=== PATIENT | male | born 1970 ===

== ENCOUNTER 2016-11-04 16:42 | Emergency (ER) | payer OTHER ==
[2016-11-04 16:42] VITALS: BMI 41.1
[2016-11-04 16:56] VITALS: BP 120/72; PULSE 105; TEMP 98.8; O2SAT 95
[2016-11-04] MEDS ORDERED: Albuterol-Ipratrop 3 mg / 0.5 (3 ml) UD INH STA ×2 (17:11→17:12)
[2016-11-04] MEDS ORDERED: Albuterol-Ipratrop 3 mg / 0.5 (3 ml) UD ONE (17:23)
[2016-11-04 17:41] VITALS: RESP 18
[2016-11-04 17:42] LABS: BASO % 0.4 % (0.0-2.0); EOS # 0.1 K/uL (0.0-0.7); EOS % 1.1 % (0.0-4.0); HEMATOCRIT 39.9 % (35.0-51.0); LYMPH # 1.6 K/uL (1.0-4.3); LYMPH % 23.5 % (20.0-40.0); MEAN CELL VOLUME 88.6 fl (80.0-94.0); MEAN CORPUSCULAR HEMOGLOBIN 29.2 pg (27.0-31.0); MEAN PLATELET VOLUME 7.9 fl (7.2-11.7); MONO # 0.6 K/uL (0.0-0.8); MONO % 8.7 % (0.0-10.0); NEUT # 4.5 K/uL (1.8-7.0); NEUT % 66.3 % (50.0-75.0); NRBC % 0.1 % (0.0-0.0); RED CELL DISTRIBUTION WIDTH 13.6 % (11.5-14.5); WHITE BLOOD COUNT 6.8 K/uL (4.8-10.8)
[2016-11-04 17:55] LABS: ALB/GLOB RATIO 1.1 (1.0-2.1); ALKALINE PHOSPHATASE 78 U/L (38-126); ALT/SGPT 41 U/L (21-72); AST/SGOT 27 U/L (17-59); BILIRUBIN,TOTAL 0.3 mg/dl (0.2-1.3); BLOOD UREA NITROGEN 21 mg/dl (9-20); CALCIUM 8.9 mg/dL (8.4-10.2); CARBON DIOXIDE 25 mmol/L (22-30); CHLORIDE 107 mmol/L (98-107); GFR AFRICAN-AMERICAN > 60; GLUCOSE,RANDOM 123 mg/dL (75-110); POTASSIUM 3.9 MMOL/L (3.6-5.0); SODIUM 144 mmol/l (132-148); TOTAL PROTEIN 7.5 G/DL (6.3-8.2)
--- NOTE | 2016-11-04 18:35 | ED PDOC ---
HPI: CCC, URI, Sore Throat Time Seen by Provider: 11/04/16 17:01 Chief Complaint (Nursing): Shortness Of Breath Chief Complaint (Provider): Cough, cold congestion History Per: Patient History/Exam Limitations: no limitations Have you had recent travel within the past 21 days to any of the following countries: [place], [place], [place] or [place]?: No Onset/Duration Of Symptoms: Days Current Symptoms Are (Timing): Still Present Location Of Pain: Throat Sick Contacts (Context): Friend(s) Associated Symptoms: Cough, Sputum. denies: Fever Additional History Per: Patient Additional Complaint(s): The pt is a 46 yo male, HIV+ with CD4+ counts over 700 and an undetectable viral load, presents to the ED for evaluation of cough, cold and congestion for the past 3 weeks. Pt reports people in the building where he lives had similar symptoms but are better now - the pt is concerned because his symptoms are still present. He reprots visiting his PMD who gave him Rx Bactrim which the pt had for a two week course. He reports no improvement from the antibiotics. Pt denies taking any steroids for his symptoms. He denies any fever but reports a productive cough with brown sputum. Currently, the pt offers no additional medical complaints. PMD: Dr. Craig Past Medical History Reviewed: Historical Data, Nursing Documentation, Vital Signs Vital Signs: Last Vital Signs Temp 98.8 F 11/04/16 16:53 Pulse 105 H 11/04/16 16:53 Resp 18 11/04/16 17:39 BP 120/72 11/04/16 16:53 Pulse Ox 95 11/04/16 22:04 - Medical History PMH: Anxiety, Asthma, Back Problems, Depression, HIV (CD4 697, viral load undetectable), HTN, Hypercholesterolemia, Hyperthyroidism, Hypothyroidism, Malignancy (BURKITT'S LYMPHOMA) Denies: Diabetes, Hepatitis, Chronic Kidney Disease, Seizures, Sexually Transmitted Disease - Family History Family History: States: Unknown Family Hx, Hypertension - Immunization History Hx Tetanus Toxoid Vaccination: No Hx Influenza Vaccination: Yes Hx Pneumococcal Vaccination: Yes - Home Medications Home Medications: Ambulatory Orders Medication Instructions Recorded Gabapentin [Neurontin] 600 mg PO QID 03/13/15 Multivit, Iron, Min #5, FA 1 tab PO DAILY 04/04/15 [Strovite Forte] Ketotifen Fumarate [Zaditor] 1 drop BOTHEYES DAILY PRN 04/07/15 Montelukast [Singulair] 10 mg PO DAILY 04/07/15 amLODIPine [Norvasc] 10 mg PO DAILY 04/07/15 PARoxetine [Paxil] 20 mg PO DAILY #30 tab 04/15/15 Prazosin HCl [Minipress] 1 mg PO HS #30 cap 04/15/15 hydrOXYzine Pamoate [Vistaril] 50 mg PO BID PRN #60 cap 04/15/15 Albuterol HFA [Ventolin HFA 90 2 puff IH [id number] PRN #1 inhaler 10/01/15 mcg/actuation (8 g)] Atorvastatin [Lipitor] 1 tab PO DAILY 10/01/15 Imipramine [Tofranil] 1 tab PO DAILY 10/01/15 Oxybutynin [Ditropan Tab] 1 tab PO DAILY 10/01/15 Aspirin [Ecotrin] 81 mg PO DAILY 11/24/15 Naproxen 500 mg PO BID PRN #20 tab 11/24/15 Promethazine HCl/Codeine 5 ml PO Q12 PRN #100 ml 11/24/15 [Promethazine HCl-Codeine Phosphate 10 mg/5 ml] Albuterol 0.5% [Albuterol 0.5% 3 ml IH Q4H PRN #50 neb 03/09/16 Inhal Sandra (2.5 mg/0.5 ml) UD] Azithromycin [Zithromax] 250 mg PO DAILY #6 dose 03/09/16 Prednisone 50 mg PO DAILY #4 tablet 03/09/16 Promethazine/Dextromethorphan 10 ml PO Q6 PRN #1 bottle 03/09/16 [Promethazine-Dm Syrup] Polymyxin/Trimethoprim Sulfate 1 drop .ROUTE Q3 #1 bottle 07/16/16 [Polytrim Ophth Soln] Albuterol HFA [Ventolin HFA 90 2 puff IH Q4 PRN #1 unit 08/14/16 mcg/actuation (8 g)] Azithromycin [Zithromax] 250 mg PO DAILY #6 tab 08/14/16 Famotidine [Pepcid] 40 mg PO DAILY #10 tab 08/14/16 Ibuprofen [Motrin] 600 mg PO TID PRN #30 tab 08/14/16 Ondansetron [Zofran] 4 mg PO Q8H #8 tab 08/14/16 Promethazine HCl/Codeine 5 ml PO TID PRN #50 syrup 08/14/16 [Prometh-Codein 6.25-10 mg/5 ml] Triamcinolone Acetonide [Nasacort 1 spray NS DAILY #1 unit 08/14/16 Allergy 24Hr] guaiFENesin/Dextromethorphan 1 tab PO BID #6 tab 08/14/16 [guaiFENesin/DM 600-30 mg] Albuterol 0.083% [Albuterol 3 ml IH Q4 PRN #50 neb 09/07/16 Sulfate 3 Ml] Azithromycin [Zithromax] 250 mg PO DAILY #4 dose 09/07/16 Prednisone 50 mg PO DAILY #4 tablet 09/07/16 traMADol [Ultram] 50 mg PO TID PRN #15 tab 09/07/16 Dicyclomine [Bentyl] 20 mg PO TID PRN #30 tab 10/01/16 Ondansetron [Zofran] 4 mg PO Q8H PRN #30 tab 10/01/16 Benzonatate [Tessalon Perles] 100 mg PO BID #15 sgl 11/04/16 predniSONE [predniSONE Tab] 60 mg PO DAILY #9 tab 11/04/16 - Allergies Allergies/Adverse Reactions: Allergies Allergy/AdvReac Type Severity Reaction Status Date / Time No Known Allergies Allergy Verified 11/04/16 16:53 Review of Systems ROS Statement: Except As Marked, All Systems Reviewed And Found Negative Constitutional: Negative for: Fever Respiratory: Positive for: Cough, Sputum Physical Exam - Reviewed Nursing Documentation Reviewed: Yes Vital Signs Reviewed: Yes - Physical Exam Appears: Positive for: Well (pt is obese), Non-toxic, No Acute Distress Head Exam: Positive for: ATRAUMATIC, NORMAL INSPECTION, NORMOCEPHALIC Skin: Positive for: Normal Color Eye Exam: Positive for: Normal appearance Neck: Positive for: Normal, Supple Cardiovascular/Chest: Positive for: Regular Rate, Rhythm Respiratory: Positive for: Wheezing (right lung field). Negative for: Respiratory Distress Neurologic/Psych: Positive for: Alert, Oriented - Laboratory Results Result Diagrams: 11/04/16 17:28 11/04/16 17:28 - ECG O2 Sat by Pulse Oximetry: 95 Medical Decision Making Medical Decision Making: Time: 1729 Impression: URI vs. bronchitis, pneumonia Plan: -- CXR -- Duoneb -- Toradol -- Prednisone --Reassess 1928 Pt reports feeling much better, will follow up with his PMD. Stable for discharge home. Scribe Attestation: Documented by Lila Ochoa acting as a scribe for Remy Rodriguez MD. Provider Attestation: All medical record entries made by the Scribe were at my direction and personally dictated by me. I have reviewed the chart and agree that the record accurately reflects my personal performance of the history, physical exam, medical decision making, and the department course for this patient. I have also personally directed, reviewed, and agree with the discharge instructions and disposition. Disposition - Clinical Impression Clinical Impression: Upper respiratory infection, Asthma - Disposition Referrals: Robert Craig MD [Family Provider] - Disposition: Routine/Home Disposition Time: 22:00 Condition: IMPROVED Prescriptions: Benzonatate [Tessalon Perles] 100 mg PO BID #15 sgl predniSONE [predniSONE Tab] 60 mg PO DAILY #9 tab Instructions: Asthma (ED), Upper Respiratory Infection (ED)
--- NOTE | 2016-11-05 16:19 | RAD ---
HISTORY: hx of HIV, r/o PNA COMPARISON: 09/07/2016 TECHNIQUE: Chest PA and lateral FINDINGS: LUNGS: The lungs are well inflated and clear. PLEURA: No significant pleural effusion identified. No pneumothorax apparent. CARDIOVASCULAR: Normal. OSSEOUS STRUCTURES: No significant abnormalities. VISUALIZED UPPER ABDOMEN: Normal. OTHER FINDINGS: None. IMPRESSION: No active pulmonary disease.
== END 2016-11-04 19:45 | disposition home or self-care (01) ==
LOC: H.ER 16:42
DX: J45.909 Unspecified asthma, uncomplicated (principal); J06.9 Acute upper respiratory infection, unspecified; B20 Human immunodeficiency virus [HIV] disease; E03.9 Hypothyroidism, unspecified; E78.00 Pure hypercholesterolemia, unspecified; I10 Essential (primary) hypertension; Z79.82 Long term (current) use of aspirin

== ENCOUNTER 2017-02-04 15:24 | Emergency (ER) | payer OTHER ==
[2017-02-04 15:24] VITALS: BMI 41.1
[2017-02-04] MEDS ORDERED: Sodium Chloride 0.9% 1,000 ML IV STA (15:52)
--- NOTE | 2017-02-04 16:13 | ED PDOC ---
HPI: General Adult Chief Complaint (Nursing): Abdominal Pain History Per: Patient Additional Complaint(s): Pt. states for the past 2 weeks he's had R sided flank pain radiating down to his R groin area. Pt. reports pain worsened over the past several days. Today he was seen by Dr. Craig who performed a urine test which showed blood in his urine. Denies fever, hematuria, dysuria, chest pain, trauma, incontinence, frequency, postprandial pain, testicular pain. Past Medical History Reviewed: Historical Data, Nursing Documentation, Vital Signs Vital Signs: Last Vital Signs Temp 98.4 F 02/04/17 19:00 Pulse 88 02/04/17 19:00 Resp 16 02/04/17 19:00 BP 115/60 02/04/17 19:00 Pulse Ox 96 02/04/17 19:00 - Medical History PMH: Anxiety, Asthma, Back Problems, Depression, HIV, HTN, Hypercholesterolemia , Hyperthyroidism, Hypothyroidism, Malignancy (BURKITT'S LYMPHOMA) Denies: Diabetes, Hepatitis, Chronic Kidney Disease, Seizures, Sexually Transmitted Disease - Family History Family History: States: Unknown Family Hx, Hypertension - Immunization History Hx Tetanus Toxoid Vaccination: No Hx Influenza Vaccination: Yes Hx Pneumococcal Vaccination: Yes - Home Medications Home Medications: Ambulatory Orders Medication Instructions Recorded Multivit,Iron,Min 5/Folic Acid 1 tab PO DAILY 04/04/15 [Strovite Forte Caplet] Montelukast [Singulair] 10 mg PO DAILY 04/07/15 amLODIPine [Norvasc] 10 mg PO DAILY 04/07/15 Prazosin HCl [Minipress] 1 mg PO HS #30 cap 04/15/15 hydrOXYzine Pamoate [Vistaril] 50 mg PO BID PRN #60 cap 04/15/15 Albuterol HFA [Ventolin HFA 90 2 puff IH [id number] PRN #1 inhaler 10/01/15 mcg/actuation (8 g)] Atorvastatin [Lipitor] 1 tab PO DAILY 10/01/15 Aspirin [Ecotrin] 81 mg PO DAILY 11/24/15 Albuterol 0.083% [Albuterol 0.083% 3 ml IH Q4 PRN #50 neb 09/07/16 Inhal Sandra (2.5 mg/3 ml) UD] Gabapentin [Neurontin] 600 mg PO Q4 11/26/16 Methimazole 10 mg PO TID 11/26/16 Efavirenz [Sustiva] 600 mg PO DAILY tab 11/30/16 Emtricitabine/Tenofovir Diso 1 tab PO DAILY tab 11/30/16 [Truvada 200 MG-300 MG] Enoxaparin [Lovenox] 40 mg SC DAILY syr 11/30/16 Fluticasone/Salmeterol 500/50 1 puff IH Q12 puff 11/30/16 [Advair Diskus 500/50] Mupirocin 2% Ointment [Bactroban 1 applic TOP BID tube 11/30/16 Ointment] Saccharomyces Boulardi [Florastor] 250 mg PO BID cap 11/30/16 Zolpidem [Ambien] 10 mg PO HS PRN #0 tab 11/30/16 Naproxen [Naprosyn] 500 mg PO BID PRN #30 tab 02/04/17 metFORMIN [glucOPHAGE] 500 mg PO BID #14 tab 02/04/17 - Allergies Allergies/Adverse Reactions: Allergies Allergy/AdvReac Type Severity Reaction Status Date / Time No Known Allergies Allergy Verified 02/04/17 15:26 Review of Systems ROS Statement: Except As Marked, All Systems Reviewed And Found Negative Physical Exam - Reviewed Nursing Documentation Reviewed: Yes Vital Signs Reviewed: Yes - Physical Exam Appears: Positive for: Well, Non-toxic, Uncomfortable Head Exam: Positive for: ATRAUMATIC, NORMAL INSPECTION, NORMOCEPHALIC Skin: Positive for: Normal Color, Warm, DRY Eye Exam: Positive for: EOMI, Normal appearance, PERRL ENT: Positive for: Normal ENT Inspection Neck: Positive for: Normal, Painless ROM Cardiovascular/Chest: Positive for: Regular Rate, Rhythm Respiratory: Positive for: CNT, Normal Breath Sounds Gastrointestinal/Abdominal: Positive for: Normal Exam, Bowel Sounds, Soft. Negative for: Tenderness Back: Positive for: Normal Inspection. Negative for: L CVA Tenderness, R CVA Tenderness Extremity: Positive for: Normal ROM Neurologic/Psych: Positive for: Alert, Oriented - Laboratory Results Result Diagrams: 02/04/17 16:33 02/04/17 16:33 - ECG O2 Sat by Pulse Oximetry: 97 - Progress ED Course And Treament: Labs ordered. IV NS bolus given. Toradol 15mg IV, morphine 4mg IV, zofran 4mg IV given. CT abd/pelvis w/o contrast ordered. RUQ US ordered. CT abd/pelvis w/o contrast: Hepatomegaly. Hepatic steatosis. RUQ US: IMPRESSION: Examination is markedly limited due to habitus. Hepatomegaly. Echogenic liver may be seen in setting of hepatic parenchymal disease or fatty infiltration. Pt. reports pain has improved. Reports no hx of DM but has been having polyuria and polydipsia. Metformin will be given. Disposition - Clinical Impression Clinical Impression: Renal colic, Hyperglycemia - Patient ED Disposition Is Patient to be Admitted: No - Disposition Disposition: Routine/Home Disposition Time: 19:11 Condition: IMPROVED Prescriptions: metFORMIN [glucOPHAGE] 500 mg PO BID #14 tab Naproxen [Naprosyn] 500 mg PO BID PRN #30 tab PRN Reason: Pain Instructions: Renal Colic (ED), Diabetes Mellitus Type 2 in Adults (ED) Print Language: MICRONESIAN
[2017-02-04 16:34] LABS: RBC URINE 1 /hpf (0-3); URINE BILIRUBIN NEGATIVE (NEGATIVE); URINE BLOOD MODERATE (NEGATIVE); URINE COLOR YELLOW (YELLOW); URINE GLUCOSE (UA) >=500 mg/dL (Normal); URINE KETONE NEGATIVE (NEGATIVE); URINE LEUKOCYTE ESTERASE NEG Leu/uL (Negative); URINE PROTEIN NEGATIVE (NEGATIVE); URINE UROBILINOGEN 0.2-1.0 mg/dL (0.2-1.0); WBC URINE < 1 /hpf (0-5)
[2017-02-04 16:46] LABS: BASO % 0.4 % (0.0-2.0); EOS # 0.1 K/uL (0.0-0.7); EOS % 1.4 % (0.0-4.0); HEMATOCRIT 42.5 % (35.0-51.0); LYMPH # 2.3 K/uL (1.0-4.3); LYMPH % 37.1 % (20.0-40.0); MEAN CELL VOLUME 87.2 fl (80.0-94.0); MEAN CORPUSCULAR HEMOGLOBIN 29.1 pg (27.0-31.0); MEAN CORPUSCULAR HGB CONC 33.4 g/dL (33.0-37.0); MEAN PLATELET VOLUME 7.8 fl (7.2-11.7); MONO # 0.8 K/uL (0.0-0.8); MONO % 12.4 % (0.0-10.0); NEUT % 48.7 % (50.0-75.0); NRBC % 0.1 % (0.0-0.0); RED CELL DISTRIBUTION WIDTH 13.4 % (11.5-14.5); WHITE BLOOD COUNT 6.1 K/uL (4.8-10.8)
[2017-02-04 16:53] LABS: ALB/GLOB RATIO 1.2 (1.0-2.1); ALKALINE PHOSPHATASE 93 U/L (38-126); ALT/SGPT 58 U/L (21-72); AST/SGOT 27 U/L (17-59); BILIRUBIN,TOTAL 0.2 mg/dl (0.2-1.3); BLOOD UREA NITROGEN 15 mg/dl (9-20); CALCIUM 9.2 mg/dL (8.4-10.2); CARBON DIOXIDE 23 mmol/L (22-30); CHLORIDE 108 mmol/L (98-107); GFR AFRICAN-AMERICAN > 60; GLUCOSE,RANDOM 160 mg/dL (75-110); LIPASE 81 U/L (23-300); POTASSIUM 3.7 MMOL/L (3.6-5.0); SODIUM 142 mmol/l (132-148); TOTAL PROTEIN 8.1 G/DL (6.3-8.2)
--- NOTE | 2017-02-04 17:25 | US ---
HISTORY: RUQ pain COMPARISON: CT abdomen and pelvis with contrast performed 09/30/16 TECHNIQUE: Sonographic evaluation of the right upper quadrant of the abdomen. FINDINGS: LIVER: Measures 20.0 cm in length. Echogenic liver may be seen in setting of hepatic parenchymal disease or fatty infiltration. No focal hepatic mass identified. Main portal vein is not adequately visualized. No intrahepatic bile duct dilatation. GALLBLADDER: No gallstones. No gallbladder wall thickening or pericholecystic edema. Negative sonographic Ruby's sign as assessed by the operations research group manager. COMMON BILE DUCT: Measures approximately 4 mm. PANCREAS: Not well-visualized. RIGHT KIDNEY: Measures 12.9 x 5.2 x 6.2 cm. No obstructing calculus or hydronephrosis identified. AORTA: Not well-visualized. IVC: Not well-visualized. OTHER FINDINGS: None . IMPRESSION: Examination is markedly limited due to habitus. Hepatomegaly. Echogenic liver may be seen in setting of hepatic parenchymal disease or fatty infiltration. The main portal vein is not adequately visualized.
--- NOTE | 2017-02-04 18:20 | CT ---
PROCEDURE: CT Abdomen and Pelvis without Oral or IV contrast. HISTORY: R flank pain COMPARISON: Limited abdominal ultrasound performed 02/04/17, CT abdomen and pelvis with contrast performed 09/30/16 TECHNIQUE: Contiguous axial images of the abdomen and pelvis. No oral or IV contrast administered. Coronal and Sagittal reformats generated and reviewed. Radiation dose: Total exam DLP = 1026.27 mGy-cm. This CT exam was performed using one or more of the following dose reduction techniques: Automated exposure control, adjustment of the mA and/or kV according to patient size, and/or use of iterative reconstruction technique. FINDINGS: There is limited evaluation of the solid organs without the administration of IV contrast. Examination limited by habitus. LOWER THORAX: No visible consolidation, pleural effusion, or pneumothorax. LIVER: Hypoattenuation of the liver compatible with hepatic steatosis. Hepatomegaly. GALLBLADDER AND BILE DUCTS: Unremarkable unenhanced appearance. PANCREAS: Unremarkable unenhanced appearance. SPLEEN: Unremarkable unenhanced appearance. ADRENALS: Unremarkable unenhanced appearance. KIDNEYS AND URETERS: No hydronephrosis or obstructing renal calculus. BLADDER: The urinary bladder appears unremarkable. REPRODUCTIVE: Unremarkable. APPENDIX: The appendix appears within normal limits of caliber. No secondary signs of acute appendicitis. BOWEL: The stomach is nondistended. Lack of oral contrast limits evaluation for bowel pathology. The bowel loops appear within normal limits of caliber without evidence of intestinal obstruction. PERITONEUM: No significant free fluid. No definite free air. LYMPH NODES: No bulky lymphadenopathy identified. VASCULATURE: No aortic aneurysm. BONES: Mild degenerative changes. OTHER FINDINGS: Small fat containing umbilical hernia. IMPRESSION: Hepatomegaly. Hepatic steatosis.
[2017-02-04 19:00] VITALS: BP 115/60; PULSE 88; RESP 16; TEMP 98.4
[2017-02-04 19:11] VITALS: O2SAT 97
== END 2017-02-04 19:35 | disposition home or self-care (01) ==
LOC: H.ER 15:24
DX: N23 Unspecified renal colic (principal); R73.9 Hyperglycemia, unspecified; E05.90 Thyrotoxicosis, unspecified without thyrotoxic crisis or storm; E78.00 Pure hypercholesterolemia, unspecified; F41.9 Anxiety disorder, unspecified; I10 Essential (primary) hypertension; Z79.82 Long term (current) use of aspirin; Z79.84 Long term (current) use of oral hypoglycemic drugs

== ENCOUNTER 2017-05-30 13:59 | Emergency (ER) | payer OTHER ==
[2017-05-30 13:59] VITALS: BMI 41.1
[2017-05-30 14:09] VITALS: TEMP 98
--- NOTE | 2017-05-30 14:20 | ED PDOC ---
HPI: SOB/CHF/COPD Time Seen by Provider: 05/30/17 14:19 Chief Complaint (Nursing): Shortness Of Breath Chief Complaint (Provider): SOB History Per: Patient Additional Complaint(s): 47-year-old HIV positive, asthmatic male presents to emergency department with shortness of breath and cough for 3 days. Patient was seen by primary care doctor's office and started on Bactrim and Medrol Dosepak 3 days ago but symptoms have worsened. He has had fever and chills at home. Patient's feels out of breath at rest and upon exertion. PMD: Dr. Craig Past Medical History Reviewed: Historical Data, Nursing Documentation, Vital Signs Vital Signs: Last Vital Signs Temp 98.0 F 05/30/17 14:03 Pulse 98 H 05/30/17 14:03 Resp 22 05/30/17 14:03 BP 122/66 05/30/17 14:03 Pulse Ox 94 L 05/30/17 14:44 - Medical History PMH: Anxiety, Asthma, Back Problems, Depression, HIV, HTN, Hypercholesterolemia , Hypothyroidism, Malignancy (BURKITT'S LYMPHOMA) - Family History Family History: States: Hypertension - Living Arrangements Living Arrangements: With Family - Social History Current smoker - smoking cessation education provided: No Alcohol: None Drugs: Denies - Home Medications Home Medications: Ambulatory Orders Medication Instructions Recorded Multivit,Iron,Min 5/Folic Acid 1 tab PO DAILY 04/04/15 [Strovite Forte Caplet] Montelukast [Singulair] 10 mg PO DAILY 04/07/15 amLODIPine [Norvasc] 10 mg PO DAILY 04/07/15 Prazosin HCl [Minipress] 1 mg PO HS #30 cap 04/15/15 hydrOXYzine Pamoate [Vistaril] 50 mg PO BID PRN #60 cap 04/15/15 Albuterol HFA [Ventolin HFA 90 2 puff IH [id number] PRN #1 inhaler 10/01/15 mcg/actuation (8 g)] Atorvastatin [Lipitor] 1 tab PO DAILY 10/01/15 Aspirin [Ecotrin] 81 mg PO DAILY 11/24/15 Albuterol 0.083% [Albuterol 0.083% 3 ml IH Q4 PRN #50 neb 09/07/16 Inhal Sandra (2.5 mg/3 ml) UD] Gabapentin [Neurontin] 600 mg PO Q4 11/26/16 Methimazole 10 mg PO TID 11/26/16 Efavirenz [Sustiva] 600 mg PO DAILY tab 11/30/16 Emtricitabine/Tenofovir Diso 1 tab PO DAILY tab 11/30/16 [Truvada 200 MG-300 MG] Enoxaparin [Lovenox] 40 mg SC DAILY syr 11/30/16 Fluticasone/Salmeterol 500/50 1 puff IH Q12 puff 11/30/16 [Advair Diskus 500/50] Mupirocin 2% Ointment [Bactroban 1 applic TOP BID tube 11/30/16 Ointment] Saccharomyces Boulardi [Florastor] 250 mg PO BID cap 11/30/16 Zolpidem [Ambien] 10 mg PO HS PRN #0 tab 11/30/16 Naproxen [Naprosyn] 500 mg PO BID PRN #30 tab 02/04/17 metFORMIN [glucOPHAGE] 500 mg PO BID #14 tab 02/04/17 - Allergies Allergies/Adverse Reactions: Allergies Allergy/AdvReac Type Severity Reaction Status Date / Time No Known Allergies Allergy Verified 02/04/17 15:26 Wells Criteria for PE - Wells Criteria for Pulmonary Embolism Clinical Signs and Symptoms of DVT: No P.E is #1 Diagnosis, or Equally Likely: No Heart Rate >100: No Immobilization at least 3 days;Surgery previous 4 weeks: No Previous, objectively diagnosed PE or DVT: No Hemoptysis: No Malignancy w/treatment within 6 months, or palliative: No Total Score: 0 Review of Systems ROS Statement: Except As Marked, All Systems Reviewed And Found Negative Constitutional: Positive for: Fever, Chills, Weakness Cardiovascular: Positive for: Chest Pain Respiratory: Positive for: Cough, Shortness of Breath, SOB with Exertion, Pleuritic Pain, Sputum (brown and green), Wheezing. Negative for: Hemoptysis Gastrointestinal: Negative for: Nausea, Vomiting, Abdominal Pain Neurological: Negative for: Headache, Dizziness Physical Exam - Reviewed Nursing Documentation Reviewed: Yes Vital Signs Reviewed: Yes - Physical Exam Appears: Positive for: Well, Non-toxic, No Acute Distress Skin: Negative for: Rash Eye Exam: Positive for: Normal appearance Cardiovascular/Chest: Positive for: Regular Rate, Rhythm Respiratory: Positive for: Rhonchi, Wheezing, Respiratory Distress (mild) Gastrointestinal/Abdominal: Positive for: Other (obese non-tender abdomen) Extremity: Positive for: Normal ROM Neurologic/Psych: Positive for: Alert, Oriented - ECG O2 Sat by Pulse Oximetry: 94 Pulse Ox Interpretation: Normal Medical Decision Making Medical Decision Makin47 year old with SOB Plan: EKG CXR CBC CMP Trop IV solumedrol Duoneb x 3 Disposition - Clinical Impression Clinical Impression: Shortness of breath - Patient ED Disposition Is Patient to be Admitted: Transfer of Care - Disposition Disposition: Transfer of Care Disposition Time: 15:09 Condition: FAIR Forms: [employer] (Lithuanian) Patient Signed Over To: Stacie Churchill Handoff Comments: Case was signed out to Dr. Churchill pending diagnostic testing results and final disposition
[2017-05-30] MEDS ORDERED: Albuterol-Ipratrop 3 mg / 0.5 (3 ml) UD INH STA (14:45)
[2017-05-30] MEDS ORDERED: Albuterol-Ipratrop 3 mg / 0.5 (3 ml) UD ONE (15:44)
[2017-05-30 15:56] LABS: BASO % 0.3 % (0.0-2.0); EOS # 0.2 K/uL (0.0-0.7); EOS % 2.1 % (0.0-4.0); HEMATOCRIT 42.8 % (35.0-51.0); LYMPH # 1.6 K/uL (1.0-4.3); LYMPH % 21.3 % (20.0-40.0); MEAN CELL VOLUME 87.4 fl (80.0-94.0); MEAN CORPUSCULAR HEMOGLOBIN 28.8 pg (27.0-31.0); MEAN PLATELET VOLUME 7.6 fl (7.2-11.7); MONO # 0.9 K/uL (0.0-0.8); MONO % 11.9 % (0.0-10.0); NEUT # 4.9 K/uL (1.8-7.0); NEUT % 64.4 % (50.0-75.0); NRBC % 0.1 % (0.0-0.0); RED CELL DISTRIBUTION WIDTH 13.6 % (11.5-14.5); WHITE BLOOD COUNT 7.5 K/uL (4.8-10.8)
[2017-05-30 16:05] LABS: ALB/GLOB RATIO 1.2 (1.0-2.1); ALKALINE PHOSPHATASE 88 U/L (38-126); ALT/SGPT 48 U/L (21-72); AST/SGOT 29 U/L (17-59); BILIRUBIN,TOTAL 0.2 mg/dl (0.2-1.3); BLOOD UREA NITROGEN 21 mg/dl (9-20); CALCIUM 8.8 mg/dL (8.4-10.2); CARBON DIOXIDE 26 mmol/L (22-30); CHLORIDE 107 mmol/L (98-107); GFR AFRICAN-AMERICAN > 60; GLUCOSE,RANDOM 100 mg/dL (75-110); POTASSIUM 3.9 MMOL/L (3.6-5.0); SODIUM 142 mmol/l (132-148); TOTAL PROTEIN 7.4 G/DL (6.3-8.2)
--- NOTE | 2017-05-30 16:05 | RAD ---
HISTORY: SOB COMPARISON: 11/25/2016 FINDINGS: LUNGS: No active pulmonary disease. PLEURA: No significant pleural effusion identified, no pneumothorax apparent. CARDIOVASCULAR: Normal. OSSEOUS STRUCTURES: No significant abnormalities. VISUALIZED UPPER ABDOMEN: Normal. OTHER FINDINGS: None. IMPRESSION: No active disease.
--- NOTE | 2017-05-30 16:35 | ED PDOC ---
- Laboratory Results Result Diagrams: 05/30/17 15:40 05/30/17 15:40 - ECG O2 Sat by Pulse Oximetry: 94 - Progress Re-evaluation Time: 17:40 Condition: Improved (PF 500, wheezing resolved.) - Physician Consult Information Physician Contacted: Robert Craig Outcome Of Conversation: Agrees with discharge home. Disposition - Clinical Impression Clinical Impression: Asthma exacerbation - POA Present On Arrival: None - Disposition Referrals: Robert Craig MD [Staff Provider] - Disposition: Routine/Home Disposition Time: 17:53 Condition: IMPROVED Additional Instructions: CONTINUE CURRENT MEDICATIONS. Prescriptions: Albuterol HFA [Ventolin HFA 90 mcg/actuation (8 g)] 2 puff IH [id number] PRN #1 bottle PRN Reason: Shortness Of Breath Albuterol 0.083% [Albuterol 0.083% Inhal Sandra (2.5 mg/3 ml) UD] 3 ml IH Q6H PRN # 30 neb PRN Reason: Shortness Of Breath Instructions: Asthma (ED) Forms: [employer] (Czech) Addendum Addendum: 05/30/17 15:00 Pt signed out by Mariam Jarvis.
[2017-05-30 18:12] VITALS: BP 120/70; PULSE 79; RESP 19; O2SAT 98
--- NOTE | 2017-05-31 08:19 | CARD ---
APPROVED REPORT EKG Measurement Heart [id number] <Conclusion> Normal sinus rhythm Normal ECG
== END 2017-05-30 18:09 | disposition home or self-care (01) ==
LOC: H.ER 13:59
DX: J45.901 Unspecified asthma with (acute) exacerbation (principal); E78.00 Pure hypercholesterolemia, unspecified; F32.9 Major depressive disorder, single episode, unspecified; F41.9 Anxiety disorder, unspecified; I10 Essential (primary) hypertension; J44.9 Chronic obstructive pulmonary disease, unspecified; Z21 Asymptomatic human immunodeficiency virus [HIV] infection status; Z79.82 Long term (current) use of aspirin; Z79.84 Long term (current) use of oral hypoglycemic drugs
CPT/HCPCS: 71010; 80053; 83605; 84484; 85025; 87040; 93005; 94640; 96374; 99283; J1885; J2930

== ENCOUNTER 2017-05-31 18:41 | Emergency (ER) | payer OTHER ==
[2017-05-31 18:41] VITALS: BMI 41.1
[2017-05-31 18:46] VITALS: TEMP 98; O2SAT 94
[2017-05-31] MEDS ORDERED: Albuterol-Ipratrop 3 mg / 0.5 (3 ml) UD INH STA (19:17)
--- NOTE | 2017-05-31 19:35 | ED PDOC ---
HPI: General Adult Time Seen by Provider: 05/31/17 19:00 Chief Complaint (Nursing): Shortness Of Breath History Per: Patient Additional Complaint(s): Pt. states since the weekend he's had cough, congestion, bodyaches, and fever ( tmax 101). Reports that he was seen by his PMD, Dr. Craig, on Saturday and was prescribed steroids and Bactrim. States symptoms did not improve so he came to ED yesterday and had blood work and was subsequently discharged. Symptoms have been persistent. Pt. states this morning while walking to the bathroom he felt weak and he fell down. Pt. states he lost consciousness for a "few seconds" then he was able to get up and walk around again. Reports since the symptoms began he's had b/l flank pain along with cough productive of green/brown sputum. Denies hemoptysis, hx of DVT/PE, headache, head injury, leg pain, abdominal pain, numbness, tingling, weakness. Past Medical History Reviewed: Historical Data, Nursing Documentation, Vital Signs Vital Signs: Last Vital Signs Temp 98 F 05/31/17 18:43 Pulse 85 05/31/17 20:02 Resp 18 05/31/17 18:43 BP 167/86 H 05/31/17 18:43 Pulse Ox 94 L 05/31/17 20:02 - Medical History PMH: Anxiety, Asthma, Back Problems, Depression, HIV, HTN, Hypercholesterolemia , Hyperthyroidism, Hypothyroidism, Malignancy (BURKITT'S LYMPHOMA) Denies: Diabetes, Hepatitis, Chronic Kidney Disease, Seizures, Sexually Transmitted Disease - Family History Family History: States: Hypertension - Immunization History Hx Tetanus Toxoid Vaccination: No Hx Influenza Vaccination: Yes Hx Pneumococcal Vaccination: Yes - Home Medications Home Medications: Ambulatory Orders Medication Instructions Recorded Multivit,Iron,Min 5/Folic Acid 1 tab PO DAILY 04/04/15 [Strovite Forte Caplet] Montelukast [Singulair] 10 mg PO DAILY 04/07/15 amLODIPine [Norvasc] 10 mg PO DAILY 04/07/15 Prazosin HCl [Minipress] 1 mg PO HS #30 cap 04/15/15 hydrOXYzine Pamoate [Vistaril] 50 mg PO BID PRN #60 cap 04/15/15 Albuterol HFA [Ventolin HFA 90 2 puff IH [id number] PRN #1 inhaler 10/01/15 mcg/actuation (8 g)] Atorvastatin [Lipitor] 1 tab PO DAILY 10/01/15 Aspirin [Ecotrin] 81 mg PO DAILY 11/24/15 Albuterol 0.083% [Albuterol 0.083% 3 ml IH Q4 PRN #50 neb 09/07/16 Inhal Sandra (2.5 mg/3 ml) UD] Gabapentin [Neurontin] 600 mg PO Q4 11/26/16 Methimazole 10 mg PO TID 11/26/16 Efavirenz [Sustiva] 600 mg PO DAILY tab 11/30/16 Emtricitabine/Tenofovir Diso 1 tab PO DAILY tab 11/30/16 [Truvada 200 MG-300 MG] Enoxaparin [Lovenox] 40 mg SC DAILY syr 11/30/16 Fluticasone/Salmeterol 500/50 1 puff IH Q12 puff 11/30/16 [Advair Diskus 500/50] Mupirocin 2% Ointment [Bactroban 1 applic TOP BID tube 11/30/16 Ointment] Saccharomyces Boulardi [Florastor] 250 mg PO BID cap 11/30/16 Zolpidem [Ambien] 10 mg PO HS PRN #0 tab 11/30/16 Naproxen [Naprosyn] 500 mg PO BID PRN #30 tab 02/04/17 metFORMIN [glucOPHAGE] 500 mg PO BID #14 tab 02/04/17 Albuterol 0.083% [Albuterol 0.083% 3 ml IH Q6H PRN #30 neb 05/30/17 Inhal Sandra (2.5 mg/3 ml) UD] Albuterol HFA [Ventolin HFA 90 2 puff IH [id number] PRN #1 bottle 05/30/17 mcg/actuation (8 g)] - Allergies Allergies/Adverse Reactions: Allergies Allergy/AdvReac Type Severity Reaction Status Date / Time No Known Allergies Allergy Verified 02/04/17 15:26 Review of Systems ROS Statement: Except As Marked, All Systems Reviewed And Found Negative Respiratory: Positive for: Cough, Shortness of Breath, Sputum Physical Exam - Reviewed Nursing Documentation Reviewed: Yes Vital Signs Reviewed: Yes - Physical Exam Appears: Positive for: Well, Non-toxic, No Acute Distress Head Exam: Positive for: ATRAUMATIC, NORMAL INSPECTION, NORMOCEPHALIC Skin: Positive for: Normal Color, Warm. Negative for: Rash Eye Exam: Positive for: EOMI, Normal appearance, PERRL ENT: Positive for: Normal ENT Inspection Neck: Positive for: Normal, Painless ROM Cardiovascular/Chest: Positive for: Regular Rate, Rhythm Respiratory: Positive for: Wheezing (b/l expiratory wheezing). Negative for: Decreased Breath Sounds, Accessory Muscle Use, Crackles, Rales, Rhonchi, Respiratory Distress Gastrointestinal/Abdominal: Positive for: Normal Exam, Bowel Sounds, Soft. Negative for: Tenderness Back: Positive for: Normal Inspection. Negative for: L CVA Tenderness, R CVA Tenderness Extremity: Positive for: Normal ROM Neurologic/Psych: Positive for: Alert, Oriented. Negative for: Aphasia, Facial Droop - ECG ECG: Positive for: Interpreted By Me ECG Rhythm: Positive for: Sinus Rhythm. Negative for: ST/T Changes Rate: 85 O2 Sat by Pulse Oximetry: 94 Disposition - Clinical Impression Clinical Impression: Bronchospasm, acute - Patient ED Disposition Is Patient to be Admitted: Transfer of Care (Signed out to Panfilo PERKINS pending labs and final disposition.) - Disposition Disposition Time: 20:00 Condition: STABLE Forms: [employer] (Serbian)
[2017-05-31 19:37] VITALS: PULSE 85
[2017-05-31] MEDS ORDERED: Albuterol-Ipratrop 3 mg / 0.5 (3 ml) UD ONE ×2 (19:39→19:42)
[2017-05-31 20:04] LABS: BASO % 0.2 % (0.0-2.0); EOS % 0.4 % (0.0-4.0); HEMATOCRIT 40.4 % (35.0-51.0); LYMPH # 2.4 K/uL (1.0-4.3); LYMPH % 20.8 % (20.0-40.0); MEAN CELL VOLUME 85.9 fl (80.0-94.0); MEAN CORPUSCULAR HGB CONC 33.8 g/dL (33.0-37.0); MEAN PLATELET VOLUME 7.4 fl (7.2-11.7); MONO # 1.3 K/uL (0.0-0.8); MONO % 11.4 % (0.0-10.0); NEUT # 7.8 K/uL (1.8-7.0); NEUT % 67.2 % (50.0-75.0); NRBC % 0.1 % (0.0-0.0); RED CELL DISTRIBUTION WIDTH 14.2 % (11.5-14.5)
[2017-05-31 20:07] LABS: WHITE BLOOD COUNT 11.5 K/uL (4.8-10.8)
[2017-05-31 20:12] LABS: VENOUS BLOOD GAS BASE EXCESS 2.8 mmol/L (0.0-2.0); VENOUS BLOOD GAS PCO2 52 mmHg (40-60); VENOUS BLOOD PH 7.36 (7.32-7.43)
[2017-05-31 20:55] LABS: ALB/GLOB RATIO 1.2 (1.0-2.1); ALKALINE PHOSPHATASE 87 U/L (38-126); ALT/SGPT 48 U/L (21-72); AST/SGOT 29 U/L (17-59); BILIRUBIN,TOTAL 0.3 mg/dl (0.2-1.3); BLOOD UREA NITROGEN 20 mg/dl (9-20); CALCIUM 9.5 mg/dL (8.4-10.2); CARBON DIOXIDE 28 mmol/L (22-30); CHLORIDE 103 mmol/L (98-107); GFR AFRICAN-AMERICAN > 60; GLUCOSE,RANDOM 97 mg/dL (75-110); SODIUM 140 mmol/l (132-148); TOTAL PROTEIN 7.7 G/DL (6.3-8.2)
[2017-05-31 21:23] LABS: URINE BILIRUBIN NEGATIVE (NEGATIVE); URINE BLOOD SMALL (NEGATIVE); URINE COLOR YELLOW (YELLOW); URINE GLUCOSE (UA) NEG (Normal); URINE KETONE NEGATIVE (NEGATIVE); URINE LEUKOCYTE ESTERASE NEG Leu/uL (Negative); URINE PROTEIN NEGATIVE (NEGATIVE); URINE UROBILINOGEN 0.2-1.0 mg/dL (0.2-1.0)
[2017-05-31 21:25] LABS: RBC URINE 11 /hpf (0-3)
[2017-05-31 21:26] LABS: WBC URINE 2 /hpf (0-5)
--- NOTE | 2017-05-31 21:38 | ED PDOC ---
- Laboratory Results Result Diagrams: 05/31/17 19:59 05/31/17 21:00 - ECG O2 Sat by Pulse Oximetry: 94 Medical Decision Making Medical Decision Making: Case endorsed to marketing underwriter from GREGORIO Keys at 20:00 pending diagnostic review adn re-eval HPI reviewed: Pt. states since the weekend he's had cough, congestion, bodyaches, and fever ( tmax 101). Reports that he was seen by his PMD, Dr. Craig, on Saturday and was prescribed steroids and Bactrim. States symptoms did not improve so he came to ED yesterday and had blood work and was subsequently discharged. Symptoms have been persistent. Pt. states this morning while walking to the bathroom he felt weak and he fell down. Pt. states he lost consciousness for a "few seconds" ( never fell or blacked out) sat down and then he was able to get up and walk around again. Reports since the symptoms began he's had b/l flank pain along with cough productive of green/brown sputum. Denies hemoptysis, hx of DVT/PE, headache, head injury, leg pain, abdominal pain, numbness, tingling, weakness. Upon my eval, Pt in bed asking for sandwich, last duo neb treatment about to be initiated. Pt able to tolerated PO well.O2 sat 99% on RA On second re-eval, all labs and CXr results discussed with Pt who reports feeling well and wanting to go home. Pt reports he will be home tomorrow and can take his inhaler as advised. Pt admits he did not take his medications throughout the day today bc he was in school. Disposition - Clinical Impression Clinical Impression: Bronchospasm, acute - POA Present On Arrival: None - Disposition Disposition: Routine/Home Disposition Time: 22:05 Condition: STABLE Forms: [facility] (Burmese)
[2017-06-01 00:42] VITALS: BP 129/74; RESP 18
--- NOTE | 2017-06-01 12:22 | CARD ---
APPROVED REPORT EKG Measurement Heart [id number] LA [id number] <Conclusion> Normal sinus rhythm Normal ECG
--- NOTE | 2017-06-01 13:07 | RAD ---
HISTORY: SOB COMPARISON: No prior. FINDINGS: LUNGS: No active pulmonary disease. PLEURA: No significant pleural effusion identified, no pneumothorax apparent. CARDIOVASCULAR: Normal. OSSEOUS STRUCTURES: No significant abnormalities. VISUALIZED UPPER ABDOMEN: Normal. OTHER FINDINGS: None. IMPRESSION: No active disease.
== END 2017-05-31 21:57 | disposition home or self-care (01) ==
LOC: H.ER 18:41
DX: J98.01 Acute bronchospasm (principal); E05.90 Thyrotoxicosis, unspecified without thyrotoxic crisis or storm; E78.00 Pure hypercholesterolemia, unspecified; F32.9 Major depressive disorder, single episode, unspecified; F41.9 Anxiety disorder, unspecified; I10 Essential (primary) hypertension; J45.909 Unspecified asthma, uncomplicated; Z79.82 Long term (current) use of aspirin; Z79.84 Long term (current) use of oral hypoglycemic drugs
CPT/HCPCS: 71010; 80053; 81003; 82803; 84484; 85025; 85378; 87040; 93005; 94150; 94640; 96374; 99285; J1885

== ENCOUNTER 2017-08-13 12:25 | Emergency (ER) | payer MEDICAID, OTHER ==
[2017-08-13 12:25] VITALS: BMI 41.1
[2017-08-13 12:32] VITALS: RESP 16; TEMP 99; O2SAT 96
[2017-08-13] MEDS ORDERED: Naproxen 500 MG TAB PO STA (12:45)
--- NOTE | 2017-08-13 12:49 | ED PDOC ---
HPI: Head Injury Time Seen by Provider: 08/13/17 12:35 Chief Complaint (Nursing): Trauma History Per: Patient Injury Occurred (Timing): Days Ago: (2) Onset/Duration Of Symptoms: Days (2) Patient States: Fell Striking Head Severity: Moderate Pain Scale Rating Of: 3 Loss Of Consciousness: No Additional Complaint(s): Fell off bed while falling asleep striking head on coffee table. No LOC. Also injured left shoulder. Has been c/o headache, dizziness, nausea nd blurry vision. Also c/o left sided neck pain. Past Medical History Vital Signs: Last Vital Signs Temp 99 F 08/13/17 12:27 Pulse 116 H 08/13/17 12:27 Resp 16 08/13/17 12:27 BP 135/92 H 08/13/17 12:27 Pulse Ox 96 08/13/17 12:27 - Medical History PMH: Anxiety, Asthma, Back Problems, Depression, HIV, HTN, Hypercholesterolemia , Hyperthyroidism, Hypothyroidism, Malignancy (BURKITT'S LYMPHOMA) Denies: Diabetes, Hepatitis, Chronic Kidney Disease, Seizures, Sexually Transmitted Disease - Family History Family History: States: Unknown Family Hx, Hypertension - Immunization History Hx Tetanus Toxoid Vaccination: No Hx Influenza Vaccination: Yes Hx Pneumococcal Vaccination: Yes - Home Medications Home Medications: Ambulatory Orders Medication Instructions Recorded Multivit,Iron,Min 5/Folic Acid 1 tab PO DAILY 04/04/15 [Strovite Forte Caplet] Montelukast [Singulair] 10 mg PO DAILY 04/07/15 amLODIPine [Norvasc] 10 mg PO DAILY 04/07/15 Prazosin HCl [Minipress] 1 mg PO HS #30 cap 04/15/15 hydrOXYzine Pamoate [Vistaril] 50 mg PO BID PRN #60 cap 04/15/15 Atorvastatin [Lipitor] 1 tab PO DAILY 10/01/15 Aspirin [Ecotrin] 81 mg PO DAILY 11/24/15 Gabapentin [Neurontin] 600 mg PO Q4 11/26/16 Methimazole 10 mg PO TID 11/26/16 Efavirenz [Sustiva] 600 mg PO DAILY tab 11/30/16 Emtricitabine/Tenofovir Diso 1 tab PO DAILY tab 11/30/16 [Truvada 200 MG-300 MG] Enoxaparin [Lovenox] 40 mg SC DAILY syr 11/30/16 Fluticasone/Salmeterol 500/50 1 puff IH Q12 puff 11/30/16 [Advair Diskus 500/50] Mupirocin 2% Ointment [Bactroban 1 applic TOP BID tube 11/30/16 Ointment] Saccharomyces Boulardi [Florastor] 250 mg PO BID cap 11/30/16 Zolpidem [Ambien] 10 mg PO HS PRN #0 tab 11/30/16 Naproxen [Naprosyn] 500 mg PO BID PRN #30 tab 02/04/17 metFORMIN [glucOPHAGE] 500 mg PO BID #14 tab 02/04/17 Albuterol 0.083% [Albuterol 0.083% 3 ml IH Q6H PRN #30 neb 05/30/17 Inhal Sandra (2.5 mg/3 ml) UD] Albuterol HFA [Ventolin HFA 90 2 puff IH [id number] PRN #1 bottle 05/30/17 mcg/actuation (8 g)] Ibuprofen [Motrin] 600 mg PO Q6 #20 tab 05/31/17 Promethazine HCl/Codeine 5 ml PO HS #80 ml 05/31/17 [Prometh-Codein 6.25-10 mg/5 ml] Benzonatate [Tessalon Perles] 200 mg PO TID PRN #21 sgl 06/10/17 Loratadine [Claritin] 10 mg PO DAILY #10 tab 06/10/17 predniSONE [Prednisone] 20 mg PO BID #10 tab 06/10/17 Naproxen [Naprosyn] 500 mg PO Q12H #20 tab 08/13/17 traMADol [Ultram] 50 mg PO Q8 #10 tab 08/13/17 - Allergies Allergies/Adverse Reactions: Allergies Allergy/AdvReac Type Severity Reaction Status Date / Time No Known Allergies Allergy Verified 06/10/17 11:23 Review of Systems ROS Statement: Except As Marked, All Systems Reviewed And Found Negative Eyes: Positive for: Vision Change Gastrointestinal: Positive for: Nausea Musculoskeletal: Positive for: Neck Pain Neurological: Positive for: Headache Physical Exam - Reviewed Nursing Documentation Reviewed: Yes Vital Signs Reviewed: Yes - Physical Exam Appears: Positive for: Non-toxic, No Acute Distress Head Exam: Positive for: ATRAUMATIC, NORMAL INSPECTION, NORMOCEPHALIC Skin: Positive for: Normal Color, Warm, DRY Eye Exam: Positive for: EOMI, Normal appearance, PERRL ENT: Positive for: Normal ENT Inspection Neck: Positive for: Normal, Painless ROM Cardiovascular/Chest: Positive for: Regular Rate, Rhythm Respiratory: Positive for: CNT, Normal Breath Sounds Gastrointestinal/Abdominal: Positive for: Normal Exam, Bowel Sounds, Soft Back: Positive for: Normal Inspection Extremity: Positive for: Normal ROM, Other (Ecchymosis left deltoid) Neurologic/Psych: Positive for: Alert, Oriented - ECG O2 Sat by Pulse Oximetry: 96 Disposition - Clinical Impression Clinical Impression: Concussion - Patient ED Disposition Is Patient to be Admitted: No - Disposition Referrals: Robert Craig MD [Family Provider] - Jason Jenkins MD [Medical Doctor] - Disposition: Routine/Home Disposition Time: 15:37 Condition: FAIR Prescriptions: Naproxen [Naprosyn] 500 mg PO Q12H #20 tab traMADol [Ultram] 50 mg PO Q8 #10 tab Instructions: Concussion (ED) Forms: [employer] (Belarusian)
--- NOTE | 2017-08-13 13:28 | RAD ---
PROCEDURE: Radiographs of the Left Shoulder HISTORY: trauma COMPARISON: No prior. FINDINGS: BONES: Normal. No fracture. JOINTS: Normal. Glenohumeral and acromioclavicular joints preserved. No osteoarthritis. SOFT TISSUES: Normal. OTHER FINDINGS: None. IMPRESSION: Normal radiographs of the left shoulder.
[2017-08-13] MEDS ORDERED: Naproxen 500 MG TAB PO ONE (15:19)
--- NOTE | 2017-08-13 15:19 | CT ---
PROCEDURE: CT HEAD WITHOUT CONTRAST. HISTORY: r/o bleed COMPARISON: 11/25/2016 TECHNIQUE: Axial computed tomography images were obtained through the head/brain without intravenous contrast. Radiation dose: Total exam DLP = 975.49 mGy-cm. This CT exam was performed using one or more of the following dose reduction techniques: Automated exposure control, adjustment of the mA and/or kV according to patient size, and/or use of iterative reconstruction technique. FINDINGS: HEMORRHAGE: No intracranial hemorrhage. BRAIN: No mass effect or edema. No atrophy or chronic microvascular ischemic changes. VENTRICLES: Unremarkable. No hydrocephalus. CALVARIUM: Unremarkable. PARANASAL SINUSES: Unremarkable as visualized. No significant inflammatory changes. MASTOID AIR CELLS: Unremarkable as visualized. No inflammatory changes. OTHER FINDINGS: None. IMPRESSION: No intracranial hemorrhage. Unremarkable CT examination of the head.
--- NOTE | 2017-08-13 15:36 | CT ---
PROCEDURE: CT Cervical Spine without contrast HISTORY: <trauma> COMPARISON: None available. TECHNIQUE: Axial computed tomography images were obtained of the cervical spine without the use of intravenous contrast. Coronal and sagittal reformatted images were created and reviewed. Radiation dose: Total exam DLP = 655.72 mGy-cm. This CT exam was performed using one or more of the following dose reduction techniques: Automated exposure control, adjustment of the mA and/or kV according to patient size, and/or use of iterative reconstruction technique. FINDINGS: VERTEBRAE: Vertebral bodies maintained in height. Normal alignment is maintained. The atlantoaxial articulation and odontoid process are intact. There is extensive sclerosis throughout the cervical spine which raises suspicion of sclerotic metastasis. There is no lytic osseous lesion identified. Consider correlation with radionuclide bone scan. DISCS/SPINAL CANAL/NEURAL FORAMINA: No significant central canal or neural foraminal stenosis. Discs heights are grossly preserved. PARASPINAL SOFT TISSUES: Unremarkable. OTHER FINDINGS: None. IMPRESSION: No evidence of fracture/dislocation. Diffuse sclerosis of the cervical spine raising suspicion of sclerotic metastasis. Further evaluation is advised.
[2017-08-13 15:57] VITALS: BP 140/83; PULSE 95
== END 2017-08-13 15:57 | disposition home or self-care (01) ==
LOC: H.ER 12:25
DX: S06.0X0A Concussion without loss of consciousness, initial encounter (principal); I10 Essential (primary) hypertension; Z86.59 Personal history of other mental and behavioral disorders; J45.909 Unspecified asthma, uncomplicated; E03.9 Hypothyroidism, unspecified; E78.00 Pure hypercholesterolemia, unspecified; Z79.82 Long term (current) use of aspirin; Z79.84 Long term (current) use of oral hypoglycemic drugs; W06.XXXA Fall from bed, initial encounter

== ENCOUNTER 2018-02-26 15:11 | Emergency (ER) | payer MEDICAID, MEDICARE ==
[2018-02-26 15:11] VITALS: BMI 41.1
[2018-02-26 15:37] VITALS: RESP 16
[2018-02-26] MEDS ORDERED: Sodium Chloride 0.9% 1,000 ML IV STA (15:58)
--- NOTE | 2018-02-26 16:17 | ED PDOC ---
HPI: Abdomen Time Seen by Provider: 02/26/18 15:41 Chief Complaint (Nursing): Abdominal Pain Chief Complaint (Provider): right flank pain History Per: Patient History/Exam Limitations: no limitations Onset/Duration Of Symptoms: Days (x1 month), Gradual, Worse Since (x2 weeks) Current Symptoms Are (Timing): Still Present Associated Symptoms: Urinary Symptoms (dysuria). denies: Fever, Chills, Nausea , Vomiting, Constipation Exacerbating Factors: Movement (sudden movement of the upper body), Deep Breaths Additional Complaint(s): Kurt Panchal Jr is a 47 year old male, with a past medical history of HTN, HIV, gastric sleeve and kidney stones, who presents to the emergency department complaining of right flank pain gradual onset for about x1 month but worst in the last x2 weeks. Patient states pain radiates down his groin and testicular area. Pain is worst with deep breaths and sudden movements of the upper body. Patient reports for the last x2 days hes had cloudy urine but denies any blood. He also reports episodes of dysuria. He denies any nausea, vomit or constipation. Patient underwent a gastric sleeve x3 weeks ago since then he's had loose stools that he attributes to the change in his diet. He lost 24 lbs over the last x3 weeks. Patient also reports warmth, erythema and tenderness to his midline anterior abdominal surgical wound for the last day. He denies any fever, chills or other medical complaints. PMD: Robert Craig Past Medical History Reviewed: Historical Data, Nursing Documentation, Vital Signs Vital Signs: Last Vital Signs Temp 98.5 F 02/26/18 19:11 Pulse 67 02/26/18 19:11 Resp 16 02/26/18 19:11 BP 114/82 02/26/18 19:11 Pulse Ox 98 02/26/18 19:11 - Medical History PMH: Anxiety, Asthma, Back Problems, Depression, HIV, HTN, Hypercholesterolemia , Hyperthyroidism, Hypothyroidism, Malignancy (BURKITT'S LYMPHOMA) Denies: Diabetes, Hepatitis, Chronic Kidney Disease, Seizures, Sexually Transmitted Disease - Surgical History Other surgeries: Gastric sleeve - Family History Family History: States: Unknown Family Hx, Hypertension - Immunization History Hx Tetanus Toxoid Vaccination: No Hx Influenza Vaccination: Yes Hx Pneumococcal Vaccination: Yes - Home Medications Home Medications: Ambulatory Orders Medication Instructions Recorded Multivit,Iron,Min 5/Folic Acid 1 tab PO DAILY 04/04/15 [Strovite Forte Caplet] Montelukast [Singulair] 10 mg PO DAILY 04/07/15 amLODIPine [Norvasc] 10 mg PO DAILY 04/07/15 Prazosin HCl [Minipress] 1 mg PO HS #30 cap 04/15/15 hydrOXYzine Pamoate [Vistaril] 50 mg PO BID PRN #60 cap 04/15/15 Atorvastatin [Lipitor] 1 tab PO DAILY 10/01/15 Aspirin [Ecotrin] 81 mg PO DAILY 11/24/15 Gabapentin [Neurontin] 600 mg PO Q4 11/26/16 Methimazole 10 mg PO TID 11/26/16 Efavirenz [Sustiva] 600 mg PO DAILY tab 11/30/16 Emtricitabine/Tenofovir Diso 1 tab PO DAILY tab 11/30/16 [Truvada 200 MG-300 MG] Enoxaparin [Lovenox] 40 mg SC DAILY syr 11/30/16 Fluticasone/Salmeterol 500/50 1 puff IH Q12 puff 11/30/16 [Advair Diskus 500/50] Mupirocin 2% Ointment [Bactroban 1 applic TOP BID tube 11/30/16 Ointment] Saccharomyces Boulardi [Florastor] 250 mg PO BID cap 11/30/16 Zolpidem [Ambien] 10 mg PO HS PRN #0 tab 11/30/16 Naproxen [Naprosyn] 500 mg PO BID PRN #30 tab 02/04/17 metFORMIN [glucOPHAGE] 500 mg PO BID #14 tab 02/04/17 Albuterol 0.083% [Albuterol 0.083% 3 ml IH Q6H PRN #30 neb 05/30/17 Inhal Sandra (2.5 mg/3 ml) UD] Albuterol HFA [Ventolin HFA 90 2 puff IH [id number] PRN #1 bottle 05/30/17 mcg/actuation (8 g)] Ibuprofen [Motrin] 600 mg PO Q6 #20 tab 05/31/17 Promethazine HCl/Codeine 5 ml PO HS #80 ml 05/31/17 [Prometh-Codein 6.25-10 mg/5 ml] Benzonatate [Tessalon Perles] 200 mg PO TID PRN #21 sgl 06/10/17 Loratadine [Claritin] 10 mg PO DAILY #10 tab 06/10/17 predniSONE [Prednisone] 20 mg PO BID #10 tab 06/10/17 Naproxen [Naprosyn] 500 mg PO Q12H #20 tab 08/13/17 traMADol [Ultram] 50 mg PO Q8 #10 tab 08/13/17 Amoxicillin/Clavulanate [Augmentin 1 tab PO BID #14 tab 02/26/18 875 MG-125 MG] Cyclobenzaprine [Flexeril] 5 mg PO Q8 PRN #15 tab 02/26/18 Ibuprofen [Motrin Tab] 600 mg PO Q8 PRN #30 tab 02/26/18 - Allergies Allergies/Adverse Reactions: Allergies Allergy/AdvReac Type Severity Reaction Status Date / Time No Known Allergies Allergy Verified 02/26/18 15:34 Review of Systems ROS Statement: Except As Marked, All Systems Reviewed And Found Negative Constitutional: Negative for: Fever, Chills Gastrointestinal: Positive for: Other (flank pain). Negative for: Nausea, Vomiting, Constipation Genitourinary Male: Positive for: Dysuria, Scrotal Pain. Negative for: Hematuria Skin: Positive for: Other (surgical wound redness ) Physical Exam - Reviewed Nursing Documentation Reviewed: Yes Vital Signs Reviewed: Yes - Physical Exam Appears: Positive for: Uncomfortable, In Acute Distress (mild) Head Exam: Positive for: ATRAUMATIC, NORMAL INSPECTION, NORMOCEPHALIC Skin: Positive for: Normal Color, Warm, Dry Eye Exam: Positive for: Normal appearance, EOMI, PERRL Neck: Positive for: Painless ROM Cardiovascular/Chest: Positive for: Regular Rate, Rhythm. Negative for: Murmur Respiratory: Positive for: Normal Breath Sounds. Negative for: Respiratory Distress Gastrointestinal/Abdominal: Positive for: Soft, Tenderness (RUQ. Negative McBurney's point), Other (Midline surgical wound w/ yellowish pus, surrounding erythema, induration and warmth. ) Back: Positive for: R CVA Tenderness Extremity: Positive for: Normal ROM (upper and lower extremities). Negative for : Deformity, Swelling Lymphatic: Negative for: Adenopathy Neurologic/Psych: Positive for: Alert, Oriented. Negative for: Motor/Sensory Deficits - Laboratory Results Result Diagrams: 02/26/18 16:46 02/26/18 16:46 - ECG O2 Sat by Pulse Oximetry: 97 (RA) Pulse Ox Interpretation: Normal Medical Decision Making Medical Decision Making: Time: 15:41 Initial Impression: Flank pain and surgical wound infection. Differential includes but not limited to pyelonephritis, interabdominal abscess, renal colic , gallbladder disease Initial Plan: --Type and screen --Abd & pelvis w/o contrast [CT] --EKG --CMP --Lact Acid, Plasma --Lipase --Magnesium --Phosphorus --Troponin I --CBC w/ differential --PTT --PT --Flomax 0.4mg PO --Sodium Chloride 1,000 ml IV 999 mls/hr --Toradol 30 mg IVP --Tylenol 325 mg tab 975 mg PO --Urine culture --Urinalysis --Reevaluation Accession No. : [id number] Patient Name / ID : MICHELLE RAPP / [id number] Exam Date : 02/26/2018 16:41:21 ( Approved ) Study Comment : Sex / Age : M / 47Y Creator : Misael Montelongo MD Dictator : Misael Montelongo MD Assistant [employer] Coach : Fisheries Director : Misael Montelongo MD Approver2 : Report Date : 02/26/2018 17:05:13 My Comment : Date of service: 02/26/2018 PROCEDURE: CT Abdomen and Pelvis without intravenous contrast HISTORY: RIGHT FLANK PAIN COMPARISON: 02/04/2017 CT abdomen and pelvis 02/04/2017 abdominal ultrasound TECHNIQUE: Unenhanced study. Neither oral nor intravenous contrast administered. Radiation dose: Total exam DLP = 915.35 mGy-cm. This CT exam was performed using one or more of the following dose reduction techniques: Automated exposure control, adjustment of the mA and/or kV according to patient size, and/or use of iterative reconstruction technique. FINDINGS: LOWER THORAX: Unremarkable. LIVER: Hepatic steatosis. No focal masses. No intrahepatic bile duct dilatation or perihepatic ascites. GALLBLADDER AND BILE DUCTS: Unremarkable. PANCREAS: Unremarkable. No gross lesion or ductal dilatation. SPLEEN: Unremarkable. ADRENALS: Unremarkable. No mass. KIDNEYS AND URETERS: Unremarkable. No hydronephrosis. No solid mass. VASCULATURE: Unremarkable. No aortic aneurysm. BOWEL: Unremarkable. No obstruction. No gross mural thickening. Row incidental gastric bypass surgery related findings left upper quadrant APPENDIX: No abnormalities to suggest acute appendicitis. No right lower quadrant inflammatory processes identified. Solitary appendicolith identified. PERITONEUM: Unremarkable. No free fluid. No free air. LYMPH NODES: Unremarkable. No enlarged lymph nodes. BLADDER: Unremarkable. REPRODUCTIVE: Unremarkable. BONES: No acute fracture. OTHER FINDINGS: None. IMPRESSION: No significant or acute findings to account for/ related to the clinical presentation. Additional benign and/or incidental findings described above. DW pt findings and plan of care. DW covering doctor for Dr Blackmon (gastric sleeve surgeon). Pt to be given antibiotics and f/u office. ----- Scribe Attestation: Documented by Fermin Brown, acting as a scribe for Khushboo French MD. Provider Scribe Attestation: All medical record entries made by the Scribe were at my direction and personally dictated by me. I have reviewed the chart and agree that the record accurately reflects my personal performance of the history, physical exam, medical decision making, and the department course for this patient. I have also personally directed, reviewed, and agree with the discharge instructions and disposition. Disposition - Clinical Impression Clinical Impression: Flank pain, Wound infection after surgery Counseled Patient/Family Regarding: Studies Performed, Diagnosis, Need For Followup, Rx Given - Disposition Referrals: Lorri RAM,MD Aly [Non-Staff] - (FOLLOW UP TOMORROW FOR REEVALUATION) Robert Craig MD [Family Provider] - (FOLLOW UP TOMORROW FOR FURTHER EVALUATION) Disposition: Routine/Home Disposition Time: 18:30 Condition: STABLE Prescriptions: Amoxicillin/Clavulanate [Augmentin 875 MG-125 MG] 1 tab PO BID #14 tab Cyclobenzaprine [Flexeril] 5 mg PO Q8 PRN #15 tab PRN Reason: muscle spasm Ibuprofen [Motrin Tab] 600 mg PO Q8 PRN #30 tab PRN Reason: Pain, Moderate (4-7) Instructions: Flank Pain, Muscle Spasms (DC), Wound Infection Forms: [facility] (U[place]ayan)
[2018-02-26 16:54] LABS: BASO % 0.7 % (0.0-2.0); EOS # 0.1 K/uL (0.0-0.7); EOS % 1.4 % (0.0-4.0); HEMOGLOBIN 14.3 g/dL (12.0-18.0); LYMPH # 1.7 K/uL (1.0-4.3); LYMPH % 37.6 % (20.0-40.0); MEAN CELL VOLUME 86.4 fl (80.0-94.0); MEAN CORPUSCULAR HEMOGLOBIN 29.3 pg (27.0-31.0); MEAN CORPUSCULAR HGB CONC 33.9 g/dL (33.0-37.0); MEAN PLATELET VOLUME 7.7 fl (7.2-11.7); MONO # 0.4 K/uL (0.0-0.8); MONO % 9.8 % (0.0-10.0); NEUT # 2.3 K/uL (1.8-7.0); NEUT % 50.5 % (50.0-75.0); RBC 4.88 Mil/uL (4.40-5.90); RED CELL DISTRIBUTION WIDTH 13.7 % (11.5-14.5); WHITE BLOOD COUNT 4.6 K/uL (4.8-10.8)
--- NOTE | 2018-02-26 17:06 | CT ---
Date of service: 02/26/2018 PROCEDURE: CT Abdomen and Pelvis without intravenous contrast HISTORY: RIGHT FLANK PAIN COMPARISON: 02/04/2017 CT abdomen and pelvis 02/04/2017 abdominal ultrasound TECHNIQUE: Unenhanced study. Neither oral nor intravenous contrast administered. Radiation dose: Total exam DLP = 915.35 mGy-cm. This CT exam was performed using one or more of the following dose reduction techniques: Automated exposure control, adjustment of the mA and/or kV according to patient size, and/or use of iterative reconstruction technique. FINDINGS: LOWER THORAX: Unremarkable. LIVER: Hepatic steatosis. No focal masses. No intrahepatic bile duct dilatation or perihepatic ascites. GALLBLADDER AND BILE DUCTS: Unremarkable. PANCREAS: Unremarkable. No gross lesion or ductal dilatation. SPLEEN: Unremarkable. ADRENALS: Unremarkable. No mass. KIDNEYS AND URETERS: Unremarkable. No hydronephrosis. No solid mass. VASCULATURE: Unremarkable. No aortic aneurysm. BOWEL: Unremarkable. No obstruction. No gross mural thickening. Row incidental gastric bypass surgery related findings left upper quadrant APPENDIX: No abnormalities to suggest acute appendicitis. No right lower quadrant inflammatory processes identified. Solitary appendicolith identified. PERITONEUM: Unremarkable. No free fluid. No free air. LYMPH NODES: Unremarkable. No enlarged lymph nodes. BLADDER: Unremarkable. REPRODUCTIVE: Unremarkable. BONES: No acute fracture. OTHER FINDINGS: None. IMPRESSION: No significant or acute findings to account for/ related to the clinical presentation. Additional benign and/or incidental findings described above.
[2018-02-26 17:07] LABS: ALB/GLOB RATIO 1.2 (1.0-2.1); ALBUMIN 4.6 g/dL (3.5-5.0); ALT/SGPT 67 U/L (21-72); AST/SGOT 70 U/L (17-59); BLOOD UREA NITROGEN 10 mg/dl (9-20); GFR AFRICAN-AMERICAN > 60; GFR NON-AFRICAN AMERICAN > 60; LIPASE 132 U/L (23-300)
[2018-02-26 17:08] LABS: INR 1.2 (0.9-1.2); PARTIAL THROMBOPLASTIN TIME 36.4 Seconds (25.6-37.1); PROTHROMBIN TIME 12.8 Seconds (9.8-13.1)
[2018-02-26 18:14] LABS: SQUAMOUS EPITHIAL 1 /hpf (0-5); URINE BACTERIA RARE (<OCC); URINE BILIRUBIN NEGATIVE (NEGATIVE); URINE BLOOD NEGATIVE (NEGATIVE); URINE CLARITY SLIGHTY-CLOUDY (Clear); URINE COLOR YELLOW (YELLOW); URINE GLUCOSE (UA) NEG (Normal); URINE HYALINE CAST 0-2 /hpf (0-2); URINE LEUKOCYTE ESTERASE NEG Leu/uL (Negative); URINE PROTEIN 30 mg/dL (NEGATIVE)
[2018-02-26 19:12] VITALS: BP 114/82; PULSE 67; TEMP 98.5
[2018-02-26 22:45] VITALS: O2SAT 97
--- NOTE | 2018-02-27 15:07 | CARD ---
APPROVED REPORT Date of service: 02/26/2018 EKG Measurement Heart [id number] <Conclusion> Normal sinus rhythm Normal ECG
== END 2018-02-26 19:25 | disposition home or self-care (01) ==
LOC: H.ER 15:11
DX: R10.31 Right lower quadrant pain (principal); T81.4XXA Infection following a procedure, initial encounter; B95.62 Methicillin resistant Staphylococcus aureus infection as the cause of diseases classified elsewhere; I10 Essential (primary) hypertension; Z79.84 Long term (current) use of oral hypoglycemic drugs
CPT/HCPCS: 74176; 80053; 81003; 83605; 83690; 83735; 84100; 84484; 85025; 85610; 85730; 86850; 86900; 87040; 87070; 87086; 87181; 93005; 96361; 96374; 99283; J1885; J7030

== ENCOUNTER 2018-04-10 21:50 | Emergency (ER) | payer MEDICARE, MEDICAID ==
[2018-04-10 21:50] VITALS: BMI 41.1
[2018-04-10] MEDS ORDERED: Albuterol-Ipratrop 3 mg / 0.5 (3 ml) UD ONE (22:37)
[2018-04-10] MEDS ORDERED: Albuterol-Ipratrop 3 mg / 0.5 (3 ml) UD INH STA (22:39)
--- NOTE | 2018-04-10 22:53 | ED PDOC ---
HPI: SOB/CHF/COPD Time Seen by Provider: 04/10/18 22:22 Chief Complaint (Nursing): Shortness Of Breath History Per: Patient Additional Complaint(s): Pt. states since Saturday he's had a cough productive of green phlegm and progressively worsening chest pain and wheezing. Pt. states he's been using his albuterol pump and albuterol neb without any relief. Pt. states that symptoms are c/w his asthma. Denies TORREZ, weakness, fever, hemoptysis, abd pain, palpitations, previous intubations. Past Medical History Reviewed: Historical Data, Nursing Documentation, Vital Signs Vital Signs: Last Vital Signs Temp 98.7 F 04/11/18 00:55 Pulse 88 04/11/18 00:55 Resp 18 04/11/18 00:55 BP 120/72 04/11/18 00:55 Pulse Ox 99 04/11/18 00:55 - Medical History PMH: Anxiety, Asthma, Back Problems, Depression, HIV, HTN, Hypercholesterolemia , Hyperthyroidism, Hypothyroidism, Malignancy (BURKITT'S LYMPHOMA) Denies: CAD, Diabetes, Hepatitis, Pulmonary Embolism, Chronic Kidney Disease , Seizures, Sexually Transmitted Disease - Family History Family History: States: Hypertension - Immunization History Hx Tetanus Toxoid Vaccination: No Hx Influenza Vaccination: Yes Hx Pneumococcal Vaccination: Yes - Home Medications Home Medications: Ambulatory Orders Medication Instructions Recorded Multivit,Iron,Min 5/Folic Acid 1 tab PO DAILY 04/04/15 [Strovite Forte Caplet] Montelukast [Singulair] 10 mg PO DAILY 04/07/15 amLODIPine [Norvasc] 10 mg PO DAILY 04/07/15 Prazosin HCl [Minipress] 1 mg PO HS #30 cap 04/15/15 hydrOXYzine Pamoate [Vistaril] 50 mg PO BID PRN #60 cap 04/15/15 Atorvastatin [Lipitor] 1 tab PO DAILY 10/01/15 Aspirin [Ecotrin] 81 mg PO DAILY 11/24/15 Gabapentin [Neurontin] 600 mg PO Q4 11/26/16 Methimazole 10 mg PO TID 11/26/16 Efavirenz [Sustiva] 600 mg PO DAILY tab 11/30/16 Emtricitabine/Tenofovir Diso 1 tab PO DAILY tab 11/30/16 [Truvada 200 MG-300 MG] Enoxaparin [Lovenox] 40 mg SC DAILY syr 11/30/16 Fluticasone/Salmeterol 500/50 1 puff IH Q12 puff 11/30/16 [Advair Diskus 500/50] Mupirocin 2% Ointment [Bactroban 1 applic TOP BID tube 11/30/16 Ointment] Saccharomyces Boulardi [Florastor] 250 mg PO BID cap 11/30/16 Zolpidem [Ambien] 10 mg PO HS PRN #0 tab 11/30/16 Naproxen [Naprosyn] 500 mg PO BID PRN #30 tab 02/04/17 metFORMIN [glucOPHAGE] 500 mg PO BID #14 tab 02/04/17 Albuterol 0.083% [Albuterol 0.083% 3 ml IH Q6H PRN #30 neb 05/30/17 Inhal Sandra (2.5 mg/3 ml) UD] Albuterol HFA [Ventolin HFA 90 2 puff IH [id number] PRN #1 bottle 05/30/17 mcg/actuation (8 g)] Ibuprofen [Motrin] 600 mg PO Q6 #20 tab 05/31/17 Promethazine HCl/Codeine 5 ml PO HS #80 ml 05/31/17 [Prometh-Codein 6.25-10 mg/5 ml] Benzonatate [Tessalon Perles] 200 mg PO TID PRN #21 sgl 06/10/17 Loratadine [Claritin] 10 mg PO DAILY #10 tab 06/10/17 predniSONE [Prednisone] 20 mg PO BID #10 tab 06/10/17 Naproxen [Naprosyn] 500 mg PO Q12H #20 tab 08/13/17 traMADol [Ultram] 50 mg PO Q8 #10 tab 08/13/17 Amoxicillin/Clavulanate [Augmentin 1 tab PO BID #14 tab 02/26/18 875 MG-125 MG] Cyclobenzaprine [Flexeril] 5 mg PO Q8 PRN #15 tab 02/26/18 Ibuprofen [Motrin Tab] 600 mg PO Q8 PRN #30 tab 02/26/18 Azithromycin [Zithromax] 250 mg PO DAILY #6 tab 04/11/18 Benzonatate [Tessalon Perle] 100 mg PO Q8 PRN #14 capsule 04/11/18 Methylprednisolone [Medrol Dose 4 mg PO DAILY #21 mg 04/11/18 Pack (21 tabs)] - Allergies Allergies/Adverse Reactions: Allergies Allergy/AdvReac Type Severity Reaction Status Date / Time No Known Allergies Allergy Verified 02/26/18 15:34 Wells Criteria for PE - Wells Criteria for Pulmonary Embolism Clinical Signs and Symptoms of DVT: No P.E is #1 Diagnosis, or Equally Likely: No Heart Rate >100: No Immobilization at least 3 days;Surgery previous 4 weeks: No Previous, objectively diagnosed PE or DVT: No Hemoptysis: No Malignancy w/treatment within 6 months, or palliative: No Total Score: 0 - Laboratory Results Result Diagrams: 04/10/18 22:55 04/10/18 22:55 - ECG O2 Sat by Pulse Oximetry: 97 - Radiology X-Ray: Interpreted by Me (CXR) X-Ray Interpretation: No Acute Disease - Progress ED Course And Treament: On re-evaluation, pt. reports feeling much better and SOB has completely resolved. Disposition - Clinical Impression Clinical Impression: Asthmatic bronchitis - Patient ED Disposition Is Patient to be Admitted: No - Disposition Referrals: [email or web address] [Outside] Robert Craig MD [Family Provider] - Disposition: Routine/Home Disposition Time: 00:10 Condition: STABLE Additional Instructions: TAMELA MARTINEZ JR, thank you for letting us take care of you today. Your provider was Feroz Traylor MD and you were treated for DIFFICULTY BREATHING. The emergency medical care you received today was directed at your acute symptoms. If you were prescribed any medication, please fill it and take as directed. It may take several days for your symptoms to resolve. Return to the Emergency Department if your symptoms worsen, do not improve, or if you have any other problems. Please contact your doctor or call one of the physicians/clinics you have been referred to that are listed on the Patient Visit Information form that is included in your discharge packet. Bring any paperwork you were given at discharge with you along with any medications you are taking to your follow up visit. Our treatment cannot replace ongoing medical care by a primary care provider outside of the emergency department. Thank you for allowing the [facility] team to be part of your care today. If you had an X-Ray or CT scan: A Radiologist will review the ED reading if any change in treatment is needed we will contact you. If you had a blood, urine, or wound culture: It will take several days for the results, if any change in treatment is needed we will contact you. If you had an STI test: It will take 48 hours for the results. Please call after 1 week if you have not heard back. Prescriptions: Azithromycin [Zithromax] 250 mg PO DAILY #6 tab Benzonatate [Tessalon Perle] 100 mg PO Q8 PRN #14 capsule PRN Reason: Cough Methylprednisolone [Medrol Dose Pack (21 tabs)] 4 mg PO DAILY #21 mg Instructions: Asthma, Adult (DC), Acute Bronchitis, Adult (DC) Forms: [facility] (Burkinan) Print Language: AZERBAIJANI
[2018-04-10 22:59] LABS: BASO % 0.2 % (0.0-2.0); EOS # 0.1 K/uL (0.0-0.7); EOS % 1.8 % (0.0-4.0); HEMOGLOBIN 13.8 g/dL (12.0-18.0); LYMPH # 2.4 K/uL (1.0-4.3); LYMPH % 36.7 % (20.0-40.0); MEAN CORPUSCULAR HEMOGLOBIN 29.8 pg (27.0-31.0); MEAN CORPUSCULAR HGB CONC 34.3 g/dL (33.0-37.0); MEAN PLATELET VOLUME 7.7 fl (7.2-11.7); MONO # 0.5 K/uL (0.0-0.8); MONO % 8.2 % (0.0-10.0); NEUT # 3.4 K/uL (1.8-7.0); NEUT % 53.1 % (50.0-75.0); RBC 4.63 Mil/uL (4.40-5.90); RED CELL DISTRIBUTION WIDTH 14.3 % (11.5-14.5); WHITE BLOOD COUNT 6.5 K/uL (4.8-10.8)
[2018-04-10 23:20] LABS: ALB/GLOB RATIO 1.2 (1.0-2.1); ALBUMIN 4.1 g/dL (3.5-5.0); ALT/SGPT 38 U/L (21-72); AST/SGOT 30 U/L (17-59); BLOOD UREA NITROGEN 23 mg/dl (9-20); CALCIUM 9.5 mg/dL (8.4-10.2); GFR NON-AFRICAN AMERICAN > 60
[2018-04-11 00:56] VITALS: BP 120/72; PULSE 88; RESP 18; TEMP 98.7
[2018-04-11 03:35] VITALS: O2SAT 97
--- NOTE | 2018-04-11 08:27 | CARD ---
APPROVED REPORT Date of service: 04/10/2018 <Conclusion> Normal sinus rhythm Normal ECG
--- NOTE | 2018-04-11 11:28 | RAD ---
HISTORY: cough COMPARISON: Chest x-ray performed 05/31/17 TECHNIQUE: Chest PA and lateral FINDINGS: Examination limited by habitus. LUNGS: No focal consolidation. Bilateral hilar prominence. Please note that chest x-ray has limited sensitivity for the detection of pulmonary masses. PLEURA: No significant pleural effusion identified. No definite pneumothorax . CARDIOVASCULAR: The cardiomediastinal silhouette appears within normal limits of size. OSSEOUS STRUCTURES: Degenerative changes. VISUALIZED UPPER ABDOMEN: Unremarkable. OTHER FINDINGS: None. IMPRESSION: Bilateral hilar prominence. No focal consolidation identified.
== END 2018-04-11 00:56 | disposition home or self-care (01) ==
LOC: H.ER 21:50
DX: J20.9 Acute bronchitis, unspecified (principal); E03.9 Hypothyroidism, unspecified; E05.90 Thyrotoxicosis, unspecified without thyrotoxic crisis or storm; E78.00 Pure hypercholesterolemia, unspecified; I10 Essential (primary) hypertension; Z79.84 Long term (current) use of oral hypoglycemic drugs; B20 Human immunodeficiency virus [HIV] disease
CPT/HCPCS: 71046; 80053; 84484; 85025; 93005; 94150; 94640; 96374; 99285; J2930

== ENCOUNTER 2018-09-29 21:44 | Emergency (ER) | payer MEDICARE, OTHER ==
[2018-09-29 21:44] VITALS: BMI 41.1
[2018-09-29] MEDS ORDERED: Albuterol-Ipratrop 3 mg / 0.5 (3 ml) UD INH STA (22:25)
--- NOTE | 2018-09-29 22:40 | ED PDOC ---
HPI: Chest Pain Time Seen by Provider: 09/29/18 21:57 Chief Complaint (Nursing): Chest Pain Chief Complaint (Provider): Chest Pain History Per: Patient History/Exam Limitations: no limitations Onset/Duration Of Symptoms: Days Current Symptoms Are (Timing): Still Present Additional Complaint(s): 48 y/o female with a PMHx of Asthma presents to the ED for evaluation of chest pain and shortness of breath, onset three days ago. Patient describes chest pain as a constant pressure. Patient states pain is located on the interior and worsening, especially with dry cough and touch. Patient reports pain worsened after taking care of cats and dogs earlier today. Of note, patient reports of being allergic to dogs and cats. Patient states symptoms are similar to those he's had prior when diagnosed with asthma exacerbation. Otherwise, patient denies leg swelling and fevers. PMD: Robert Craig Past Medical History Reviewed: Historical Data, Nursing Documentation, Vital Signs Vital Signs: Last Vital Signs Temp 98.7 F 09/29/18 21:51 Pulse 97 H 09/29/18 21:51 Resp 18 09/29/18 21:51 BP 112/79 09/29/18 21:51 Pulse Ox 98 09/29/18 21:51 - Medical History PMH: Anxiety, Asthma, Back Problems, Depression, HIV, HTN, Hypercholesterolemia, Hyperthyroidism, Hypothyroidism, Malignancy (BURKITT'S LYMPHOMA) Denies: CAD, Diabetes, Hepatitis, Pulmonary Embolism, Chronic Kidney Disease, Seizures, Sexually Transmitted Disease - Surgical History Surgical History: No Surg Hx - Family History Family History: States: Unknown Family Hx, Hypertension - Immunization History Hx Tetanus Toxoid Vaccination: No Hx Influenza Vaccination: Yes Hx Pneumococcal Vaccination: Yes - Home Medications Home Medications: Ambulatory Orders Medication Instructions Recorded Multivit,Iron,Min 5/Folic Acid 1 tab PO DAILY 04/04/15 [Strovite Forte Caplet] Montelukast [Singulair] 10 mg PO DAILY 04/07/15 amLODIPine [Norvasc] 10 mg PO DAILY 04/07/15 Prazosin HCl [Minipress] 1 mg PO HS #30 cap 04/15/15 hydrOXYzine Pamoate [Vistaril] 50 mg PO BID PRN #60 cap 04/15/15 Atorvastatin [Lipitor] 1 tab PO DAILY 10/01/15 Aspirin [Ecotrin] 81 mg PO DAILY 11/24/15 Gabapentin [Neurontin] 600 mg PO Q4 11/26/16 Methimazole 10 mg PO TID 11/26/16 Efavirenz [Sustiva] 600 mg PO DAILY tab 11/30/16 Emtricitabine/Tenofovir Diso 1 tab PO DAILY tab 11/30/16 [Truvada 200 MG-300 MG] Enoxaparin [Lovenox] 40 mg SC DAILY syr 11/30/16 Fluticasone/Salmeterol 500/50 1 puff IH Q12 puff 11/30/16 [Advair Diskus 500/50] Mupirocin 2% Ointment [Bactroban 1 applic TOP BID tube 11/30/16 Ointment] Saccharomyces Boulardi [Florastor] 250 mg PO BID cap 11/30/16 Zolpidem [Ambien] 10 mg PO HS PRN #0 tab 11/30/16 Naproxen [Naprosyn] 500 mg PO BID PRN #30 tab 02/04/17 metFORMIN [glucOPHAGE] 500 mg PO BID #14 tab 02/04/17 Ibuprofen [Motrin] 600 mg PO Q6 #20 tab 05/31/17 Promethazine HCl/Codeine 5 ml PO HS #80 ml 05/31/17 [Prometh-Codein 6.25-10 mg/5 ml] Benzonatate [Tessalon Perles] 200 mg PO TID PRN #21 sgl 06/10/17 Loratadine [Claritin] 10 mg PO DAILY #10 tab 06/10/17 predniSONE [Prednisone] 20 mg PO BID #10 tab 06/10/17 Naproxen [Naprosyn] 500 mg PO Q12H #20 tab 08/13/17 traMADol [Ultram] 50 mg PO Q8 #10 tab 08/13/17 Amoxicillin/Clavulanate [Augmentin 1 tab PO BID #14 tab 02/26/18 875 MG-125 MG] Cyclobenzaprine [Flexeril] 5 mg PO Q8 PRN #15 tab 02/26/18 Ibuprofen [Motrin Tab] 600 mg PO Q8 PRN #30 tab 02/26/18 Azithromycin [Zithromax] 250 mg PO DAILY #6 tab 04/11/18 Benzonatate [Tessalon Perle] 100 mg PO Q8 PRN #14 capsule 04/11/18 Albuterol 0.083% [Albuterol 0.083% 3 ml IH Q6H PRN #30 neb 09/29/18 Inhal Sandra (2.5 mg/3 ml) UD] Albuterol HFA [Ventolin HFA 90 2 puff IH [id number] PRN #1 bottle 09/29/18 mcg/actuation (8 g)] Methylprednisolone [Medrol Dose 4 mg PO DAILY #21 mg 09/29/18 Pack (21 tabs)] - Allergies Allergies/Adverse Reactions: Allergies Allergy/AdvReac Type Severity Reaction Status Date / Time No Known Allergies Allergy Verified 02/26/18 15:34 ZEB Risk Score for UA/NSTEMI - ZEB Risk Score Age > 64: NO 3 or more CAD Risk Factors: NO Known CAD (Stenosis greater than 50%): NO Aspirin use in past 7 days: NO Severe Angina: NO EKG ST changes greater than 0.5mm: NO Positive Cardiac Marker: NO ZEB Score: 0 Risk %: 5% Wells Criteria for PE - Wells Criteria for Pulmonary Embolism Clinical Signs and Symptoms of DVT: No P.E is #1 Diagnosis, or Equally Likely: No Heart Rate >100: No Immobilization at least 3 days;Surgery previous 4 weeks: No Previous, objectively diagnosed PE or DVT: No Hemoptysis: No Malignancy w/treatment within 6 months, or palliative: No Total Score: 0 Review of Systems ROS Statement: Except As Marked, All Systems Reviewed And Found Negative Constitutional: Negative for: Fever Cardiovascular: Positive for: Chest Pain Respiratory: Positive for: Cough, Shortness of Breath Musculoskeletal: Negative for: Leg Pain Physical Exam - Reviewed Nursing Documentation Reviewed: Yes Vital Signs Reviewed: Yes - Physical Exam Appears: Positive for: No Acute Distress (comfortable). Negative for: Uncomfortable Head Exam: Positive for: ATRAUMATIC, NORMOCEPHALIC Skin: Positive for: Normal Color, Warm, Dry Eye Exam: Positive for: Normal appearance, EOMI, PERRL Neck: Positive for: Normal, Painless ROM, Supple Cardiovascular/Chest: Positive for: Regular Rate, Rhythm. Negative for: Chest Non Tender (Chest wall tenderness in the sternum region), Murmur Respiratory: Positive for: Normal Breath Sounds. Negative for: Respiratory Di stress Gastrointestinal/Abdominal: Positive for: Normal Exam, Soft. Negative for: Tenderness Extremity: Positive for: Normal ROM Neurologic/Psych: Positive for: Alert, Oriented. Negative for: Motor/Sensory Deficits - Laboratory Results Result Diagrams: 09/29/18 22:35 09/29/18 22:35 - ECG O2 Sat by Pulse Oximetry: 98 (RA) Pulse Ox Interpretation: Normal - Radiology X-Ray: Interpreted by Me, Viewed By Me X-Ray Interpretation: No Acute Disease - Progress Re-evaluation Time: 23:40 Condition: Re-examined, Improved Medical Decision Making Medical Decision Making: Time: 2222 Impression: Chest pain and shortness of breath Differentials include but not limited to asthma exacerbation Rule out ACS and Pulmonary Embolism Plan: -- EKG -- B-Type Natriuretic Peptide. -- BMP -- Troponin I -- CBC with Differentials -- D Dimer -- CXR Two Views -- Duoneb 3mg/0.5mg 3 ml (UD) 3ml INH -- SOLU-Medrol 125 mg IVP -- Toradol 30 mg IVP -- Associate Professor Of [employer] -- Peak Flow Pre/Post Tx Scribe Attestation: Documented by Mathew Torres, acting as a scribe for Ashley Zuluaga MD. Provider Scribe Attestation: All medical record entries made by the Scribe were at my direction and personally dictated by me. I have reviewed the chart and agree that the record accurately reflects my personal performance of the history, physical exam, medical decision making, and the department course for this patient. I have also personally directed, reviewed, and agree with the discharge instructions and disposition. Disposition - Clinical Impression Clinical Impression: Chest pain, Asthma - Patient ED Disposition Is Patient to be Admitted: No Doctor Will See Patient In The: Office Counseled Patient/Family Regarding: Studies Performed, Diagnosis, Need For Followup - Disposition Referrals: Robert Craig MD [Family Provider] - Disposition: Routine/Home Disposition Time: 23:41 Condition: GOOD Additional Instructions: TAMELA Oral MICHELLE HERRERA, thank you for letting us take care of you today. Your provider was Ashley Zuluaga MD and you were treated for CHEST PAIN. The emergency medical care you received today was directed at your acute symptoms. If you were prescribed any medication, please fill it and take as directed. It may take several days for your symptoms to resolve. Return to the Emergency Department if your symptoms worsen, do not improve, or if you have any other problems. Please contact your doctor or call one of the physicians/clinics you have been referred to that are listed on the Patient Visit Information form that is included in your discharge packet. Bring any paperwork you were given at discharge with you along with any medications you are taking to your follow up visit. Our treatment cannot replace ongoing medical care by a primary care provider outside of the emergency department. Thank you for allowing the [facility] team to be part of your care today. If you had an X-Ray or CT scan: A Radiologist will review the ED reading if any change in treatment is needed we will contact you. If you had a blood, urine, or wound culture: It will take several days for the results, if any change in treatment is needed we will contact you. If you had an STI test: It will take 48 hours for the results. Please call after 1 week if you have not heard back. Prescriptions: Albuterol HFA [Ventolin HFA 90 mcg/actuation (8 g)] 2 puff IH [id number] PRN #1 bottle PRN Reason: Shortness Of Breath Albuterol 0.083% [Albuterol 0.083% Inhal Sandra (2.5 mg/3 ml) UD] 3 ml IH Q6H PRN #30 neb PRN Reason: Shortness Of Breath Methylprednisolone [Medrol Dose Pack (21 tabs)] 4 mg PO DAILY #21 mg Instructions: Asthma in Adults, Chest Pain Forms: [employer] (Canadian)
[2018-09-29 22:43] LABS: BASO % 0.6 % (0.0-2.0); EOS # 0.1 K/uL (0.0-0.7); EOS % 2.1 % (0.0-4.0); HEMOGLOBIN 13.7 g/dL (12.0-18.0); LYMPH # 2.4 K/uL (1.0-4.3); LYMPH % 40.4 % (20.0-40.0); MEAN CELL VOLUME 88.3 fl (80.0-94.0); MEAN CORPUSCULAR HEMOGLOBIN 29.3 pg (27.0-31.0); MEAN CORPUSCULAR HGB CONC 33.2 g/dL (33.0-37.0); MEAN PLATELET VOLUME 7.5 fl (7.2-11.7); MONO # 0.5 K/uL (0.0-0.8); MONO % 8.3 % (0.0-10.0); NEUT # 2.8 K/uL (1.8-7.0); NEUT % 48.6 % (50.0-75.0); NRBC % 0.1 % (0.0-0.0); RBC 4.66 Mil/uL (4.40-5.90); RED CELL DISTRIBUTION WIDTH 14.3 % (11.5-14.5); WHITE BLOOD COUNT 5.8 K/uL (4.8-10.8)
[2018-09-29] MEDS ORDERED: Albuterol-Ipratrop 3 mg / 0.5 (3 ml) UD ONE (22:46)
[2018-09-29 22:54] LABS: BLOOD UREA NITROGEN 21 mg/dl (9-20); CALCIUM 9.4 mg/dL (8.4-10.2); GFR NON-AFRICAN AMERICAN > 60
[2018-09-29 23:06] LABS: B-TYPE NATRIURETIC PEPTIDE 19.5 pg/ml (0-450)
[2018-09-29 23:57] VITALS: BP 123/78; PULSE 75; RESP 16; TEMP 98.6; O2SAT 99
--- NOTE | 2018-09-30 08:59 | CARD ---
APPROVED REPORT Date of service: 09/29/2018 EKG Measurement Heart [id number] <Conclusion> Normal sinus rhythm Normal ECG
--- NOTE | 2018-09-30 09:13 | RAD ---
Date of service: 09/29/2018 HISTORY: chest pain COMPARISON: Comparison made with prior study 04/10/2018 TECHNIQUE: Chest PA and lateral FINDINGS: LUNGS: No active pulmonary disease. PLEURA: No significant pleural effusion identified. No pneumothorax apparent. CARDIOVASCULAR: No aortic atherosclerotic calcification present. Normal cardiac size. No pulmonary vascular congestion. OSSEOUS STRUCTURES: Mild multilevel degenerative spondylosis of the thoracic spine. Minor chronic anterior wedge deformities of several mid to lower thoracic segments. VISUALIZED UPPER ABDOMEN: Normal. OTHER FINDINGS: None. IMPRESSION: No acute for infiltrates.
== END 2018-09-29 23:57 | disposition home or self-care (01) ==
LOC: H.ER 21:44
DX: R07.9 Chest pain, unspecified (principal); J45.909 Unspecified asthma, uncomplicated; E03.9 Hypothyroidism, unspecified; E05.90 Thyrotoxicosis, unspecified without thyrotoxic crisis or storm; E78.00 Pure hypercholesterolemia, unspecified; Z86.59 Personal history of other mental and behavioral disorders; I10 Essential (primary) hypertension; Z79.84 Long term (current) use of oral hypoglycemic drugs; Z79.82 Long term (current) use of aspirin
CPT/HCPCS: 71046; 80048; 83880; 84484; 85025; 85378; 93005; 96374; 96375; 99284; J1885; J2930

== ENCOUNTER 2018-10-14 15:43 | Emergency (ER) | payer OTHER ==
[2018-10-14 15:52] VITALS: BMI 36.9
--- NOTE | 2018-10-14 17:55 | ED PDOC ---
HPI: Trauma/Fall - HPI Time Seen by Provider: 10/14/18 16:05 Chief Complaint (Nursing): Trauma Chief Complaint (Provider): Trauma History Per: Patient History/Exam Limitations: no limitations Onset/Duration Of Symptoms: Sudden Onset Injury Occurred (Timing): Today @ (1030) Additional Complaint(s): 48 year old male with past history of HIV, presents to the emergency department for an evaluation status post fall injury around 1030 earlier today. Patient states that he slipped on black ice and did not feel any symptoms initially. Subsequently throughout the day, patient began experiencing pain to his left hip radiating to knee, lower pain pain. He denies dizziness, nausea, or vomiting. Of note, patient is requesting no narcotics for pain control. PCP: Dr. Robert Craig Past Medical History Reviewed: Historical Data, Nursing Documentation, Vital Signs Vital Signs: Last Vital Signs Temp 98.5 F 10/14/18 15:50 Pulse 66 10/14/18 15:50 Resp 16 10/14/18 15:50 BP 124/78 10/14/18 15:50 Pulse Ox 97 10/14/18 15:50 - Medical History PMH: Anxiety, Asthma, Back Problems, Depression, HIV, HTN, Hypercholesterolemia, Hyperthyroidism, Hypothyroidism, Malignancy (BURKITT'S LYMPHOMA) Denies: CAD, Diabetes, Hepatitis, Pulmonary Embolism, Chronic Kidney Disease, Seizures, Sexually Transmitted Disease - Surgical History Other surgeries: gastric sleeve - Family History Family History: States: Unknown Family Hx, Hypertension - Social History Current smoker - smoking cessation education provided: No Alcohol: None Drugs: Denies - Immunization History Hx Tetanus Toxoid Vaccination: No Hx Influenza Vaccination: Yes Hx Pneumococcal Vaccination: Yes - Home Medications Home Medications: Ambulatory Orders Medication Instructions Recorded Multivit,Iron,Min 5/Folic Acid 1 tab PO DAILY 04/04/15 [Strovite Forte Caplet] Montelukast [Singulair] 10 mg PO DAILY 04/07/15 amLODIPine [Norvasc] 10 mg PO DAILY 04/07/15 Prazosin HCl [Minipress] 1 mg PO HS #30 cap 04/15/15 hydrOXYzine Pamoate [Vistaril] 50 mg PO BID PRN #60 cap 04/15/15 Atorvastatin [Lipitor] 1 tab PO DAILY 10/01/15 Aspirin [Ecotrin] 81 mg PO DAILY 11/24/15 Gabapentin [Neurontin] 600 mg PO Q4 11/26/16 Methimazole 10 mg PO TID 11/26/16 Efavirenz [Sustiva] 600 mg PO DAILY tab 11/30/16 Emtricitabine/Tenofovir Diso 1 tab PO DAILY tab 11/30/16 [Truvada 200 MG-300 MG] Enoxaparin [Lovenox] 40 mg SC DAILY syr 11/30/16 Fluticasone/Salmeterol 500/50 1 puff IH Q12 puff 11/30/16 [Advair Diskus 500/50] Mupirocin 2% Ointment [Bactroban 1 applic TOP BID tube 11/30/16 Ointment] Saccharomyces Boulardi [Florastor] 250 mg PO BID cap 11/30/16 Zolpidem [Ambien] 10 mg PO HS PRN #0 tab 11/30/16 Naproxen [Naprosyn] 500 mg PO BID PRN #30 tab 02/04/17 metFORMIN [glucOPHAGE] 500 mg PO BID #14 tab 02/04/17 Ibuprofen [Motrin] 600 mg PO Q6 #20 tab 05/31/17 Promethazine HCl/Codeine 5 ml PO HS #80 ml 05/31/17 [Prometh-Codein 6.25-10 mg/5 ml] Benzonatate [Tessalon Perles] 200 mg PO TID PRN #21 sgl 06/10/17 Loratadine [Claritin] 10 mg PO DAILY #10 tab 06/10/17 predniSONE [Prednisone] 20 mg PO BID #10 tab 06/10/17 Naproxen [Naprosyn] 500 mg PO Q12H #20 tab 08/13/17 traMADol [Ultram] 50 mg PO Q8 #10 tab 08/13/17 Amoxicillin/Clavulanate [Augmentin 1 tab PO BID #14 tab 02/26/18 875 MG-125 MG] Cyclobenzaprine [Flexeril] 5 mg PO Q8 PRN #15 tab 02/26/18 Ibuprofen [Motrin Tab] 600 mg PO Q8 PRN #30 tab 02/26/18 Azithromycin [Zithromax] 250 mg PO DAILY #6 tab 04/11/18 Benzonatate [Tessalon Perle] 100 mg PO Q8 PRN #14 capsule 04/11/18 Albuterol 0.083% [Albuterol 0.083% 3 ml IH Q6H PRN #30 neb 09/29/18 Inhal Sandra (2.5 mg/3 ml) UD] Albuterol HFA [Ventolin HFA 90 2 puff IH [id number] PRN #1 bottle 09/29/18 mcg/actuation (8 g)] Methylprednisolone [Medrol Dose 4 mg PO DAILY #21 mg 09/29/18 Pack (21 tabs)] Ibuprofen [Motrin] 600 mg PO Q6H PRN #20 tab 10/14/18 - Allergies Allergies/Adverse Reactions: Allergies Allergy/AdvReac Type Severity Reaction Status Date / Time No Known Allergies Allergy Verified 10/14/18 16:03 Review of Systems ROS Statement: Except As Marked, All Systems Reviewed And Found Negative Constitutional: Positive for: Other ("feels hot") Gastrointestinal: Negative for: Nausea, Vomiting Musculoskeletal: Positive for: Back Pain (lower), Leg Pain (left knee), Other (left hip pain) Neurological: Positive for: Headache (mild). Negative for: Dizziness Physical Exam - Reviewed Nursing Documentation Reviewed: Yes Vital Signs Reviewed: Yes - Physical Exam Appears: Positive for: Well, Non-toxic, No Acute Distress Head Exam: Positive for: ATRAUMATIC, NORMAL INSPECTION, NORMOCEPHALIC Skin: Positive for: Normal Color Eye Exam: Positive for: Normal appearance, EOMI, PERRL ENT: Positive for: Normal ENT Inspection Neck: Positive for: Normal, Painless ROM, Supple Cardiovascular/Chest: Positive for: Regular Rate, Rhythm, Other (left sternomastoid tenderness). Negative for: Chest Non Tender, Murmur Respiratory: Positive for: Normal Breath Sounds. Negative for: Respiratory Distress Gastrointestinal/Abdominal: Positive for: Normal Exam, Soft. Negative for: Tenderness Back: Positive for: Normal Inspection. Negative for: Vertebral Tenderness Extremity: Positive for: Normal ROM (upper/lower). Negative for: Tenderness (upper/lower), Deformity (upper/lower), Swelling (upper/lower) Neurologic/Psych: Positive for: Alert, Oriented (x3), Gait (steady). Negative for: Motor/Sensory Deficits, Aphasia - ECG O2 Sat by Pulse Oximetry: 97 (RA) Pulse Ox Interpretation: Normal Medical Decision Making Medical Decision Making: Time: 1644 Initial Plan: mechanical fall * CT head * Flexeril 10mg PO * Motrin 600mg PO * XR hip (JEROME) * XR LS spine * XR shoulder (left) Time: 1800 --CT head FINDINGS: HEMORRHAGE: No intracranial hemorrhage. BRAIN: Liang-white matter differentiation is preserved. There is no mass, mass effect or abnormal extra-axial fluid collection. There is no territorial infarction. The midline sagittal structures are normal. VENTRICLES: The ventricles are normal in size, shape and configuration. CALVARIUM: There is no calvarial fracture or extracranial soft tissue swelling. PARANASAL SINUSES: Predominantly clear. MASTOID AIR CELLS: Predominantly clear. OTHER FINDINGS: None. IMPRESSION: No acute intracranial abnormality. --Time: 1837 --XR LS spine FINDINGS: BONES: There is normal alignment of the lumbar vertebral bodies. There is loss of normal lumbar lordosis. There is no acute fracture, spondylolysis or spondylolisthesis. Bone mineralization is normal. DISC SPACES: There is mild multilevel degenerative disc disease with mild reduced disc heights, anterior spurring and mild multilevel facet arthropathy, worse at L5- S1. OTHER FINDINGS: There are no pathologic soft tissue calcifications. Both sacroiliac joints are normal. IMPRESSION: No acute fracture. Straightening of the lumbar spine may be related to muscle spasm. Mild multilevel degenerative disc disease, worse at L5-S1. Time: 1839 --XR shoulder FINDINGS: BONES: Bone alignment and mineralization are normal. There is no acute displaced fracture or bone destruction. JOINTS: The glenohumeral and acromioclavicular joints are preserved. No significant degenerative osteoarthrosis. SOFT TISSUES: Normal. OTHER FINDINGS: None. IMPRESSION: No acute displaced fracture or dislocation. Time: 1840 --XR hip/pelvis FINDINGS: BONES: Bone alignment and mineralization are normal. There is no acute displaced fracture or bone destruction. JOINTS: The joint spaces are preserved. SOFT TISSUES: Normal. OTHER FINDINGS: None. IMPRESSION: No acute displaced fracture or dislocation. Please note occult fractures cannot be excluded on plain radiographs. If there is a persistent clinical concern, an MRI of the hip may be performed for further evaluation. Time: 2104 --Upon provider reevaluation, patient is medically stable, reports feeling better, and requires no further treatment in the ED at this time. Patient will be discharged home with Rx for Motrin. Counseling was provided and all questions were answered regarding diagnosis. There is agreement to discharge plan. Return if symptoms persist or worsen. Clinical Impression: Fall pt sleeping comfortably upon reeval. states pain imrpoved. discussed results with pt.stable for dc Scribe Attestation: Documented by Kailee Cool, acting as a scribe for Feroz Traylor MD. Provider Scribe Attestation: All medical record entries made by the Scribe were at my direction and personally dictated by me. I have reviewed the chart and agree that the record accurately reflects my personal performance of the history, physical exam, medical decision making, and the department course for this patient. I have also personally directed, reviewed, and agree with the discharge instructions and disposition. Disposition - Clinical Impression Clinical Impression: Fall - Patient ED Disposition Is Patient to be Admitted: No Counseled Patient/Family Regarding: Studies Performed, Diagnosis, Need For Followup, Rx Given - Disposition Disposition: Routine/Home Disposition Time: 21:05 Condition: IMPROVED Additional Instructions: follow up with your primary doctor in 2 days take motrin for pain return to the ED with any worsening or concerning symptoms Prescriptions: Ibuprofen [Motrin] 600 mg PO Q6H PRN #20 tab PRN Reason: Pain, Moderate (4-7) Instructions: Preventing Falls Forms: [employer] (Serbian)
--- NOTE | 2018-10-14 18:03 | CT ---
Date of service: 10/14/2018 PROCEDURE: CT HEAD WITHOUT CONTRAST. HISTORY: Headache COMPARISON: 08/13/2017. TECHNIQUE: Axial computed tomography images were obtained through the head/brain without intravenous contrast. Radiation dose: Total exam DLP = 911.99 mGy-cm. This CT exam was performed using one or more of the following dose reduction techniques: Automated exposure control, adjustment of the mA and/or kV according to patient size, and/or use of iterative reconstruction technique. FINDINGS: HEMORRHAGE: No intracranial hemorrhage. BRAIN: Liang-white matter differentiation is preserved. There is no mass, mass effect or abnormal extra-axial fluid collection. There is no territorial infarction. The midline sagittal structures are normal. VENTRICLES: The ventricles are normal in size, shape and configuration. CALVARIUM: There is no calvarial fracture or extracranial soft tissue swelling. PARANASAL SINUSES: Predominantly clear. MASTOID AIR CELLS: Predominantly clear. OTHER FINDINGS: None. IMPRESSION: No acute intracranial abnormality.
--- NOTE | 2018-10-14 18:42 | RAD ---
Date of service: 10/14/2018 PROCEDURE: Radiographs of the Lumbar Spine. HISTORY: fall COMPARISON: No prior. FINDINGS: BONES: There is normal alignment of the lumbar vertebral bodies. There is loss of normal lumbar lordosis. There is no acute fracture, spondylolysis or spondylolisthesis. Bone mineralization is normal. DISC SPACES: There is mild multilevel degenerative disc disease with mild reduced disc heights, anterior spurring and mild multilevel facet arthropathy, worse at L5-S1. OTHER FINDINGS: There are no pathologic soft tissue calcifications. Both sacroiliac joints are normal. IMPRESSION: No acute fracture. Straightening of the lumbar spine may be related to muscle spasm. Mild multilevel degenerative disc disease, worse at L5-S1.
--- NOTE | 2018-10-14 18:43 | RAD ---
Date of service: 10/14/2018 PROCEDURE: Radiographs of the left shoulder HISTORY: pain sp fall COMPARISON: 08/13/2017 FINDINGS: BONES: Bone alignment and mineralization are normal. There is no acute displaced fracture or bone destruction. JOINTS: The glenohumeral and acromioclavicular joints are preserved. No significant degenerative osteoarthrosis. SOFT TISSUES: Normal. OTHER FINDINGS: None. IMPRESSION: No acute displaced fracture or dislocation.
--- NOTE | 2018-10-14 18:44 | RAD ---
PROCEDURE: Radiographs of the pelvis and bilateral hips HISTORY: fall COMPARISON: None. FINDINGS: BONES: Bone alignment and mineralization are normal. There is no acute displaced fracture or bone destruction. JOINTS: The joint spaces are preserved. SOFT TISSUES: Normal. OTHER FINDINGS: None. IMPRESSION: No acute displaced fracture or dislocation. Please note occult fractures cannot be excluded on plain radiographs. If there is a persistent clinical concern, an MRI of the hip may be performed for further evaluation.
[2018-10-14 21:29] VITALS: BP 133/76; PULSE 54; RESP 18; TEMP 97.7
[2018-10-14 22:02] VITALS: O2SAT 97
== END 2018-10-14 21:38 | disposition home or self-care (01) ==
LOC: H.ER 15:43
DX: T14.8XXA Other injury of unspecified body region, initial encounter (principal); W00.9XXA Unspecified fall due to ice and snow, initial encounter; Z86.59 Personal history of other mental and behavioral disorders; I10 Essential (primary) hypertension; J45.909 Unspecified asthma, uncomplicated; E05.90 Thyrotoxicosis, unspecified without thyrotoxic crisis or storm; Z21 Asymptomatic human immunodeficiency virus [HIV] infection status; Z79.84 Long term (current) use of oral hypoglycemic drugs

== ENCOUNTER 2018-11-26 19:06 | Emergency (ER) | payer OTHER ==
[2018-11-26 19:06] VITALS: BMI 36.9
[2018-11-26 19:15] VITALS: O2SAT 99
--- NOTE | 2018-11-26 20:38 | ED PDOC ---
HPI: Headache Time Seen by Provider: 11/26/18 20:07 Chief Complaint (Nursing): Chest Pain Chief Complaint (Provider): headache History Per: Patient History/Exam Limitations: no limitations Onset/Duration Of Symptoms: Days (4), Waxing/Waning Current Symptoms Are (Timing): Still Present Quality: Pressure Associated Symptoms: Photophobia, Nausea Additional Complaint(s): 48 y/o male presents for evaluation of intermittent posterior headache x 4 days. Patient states pain radiates to neck, with associated nausea, photophobia, phonophobia. Patient states he has not taken his blood pressure medication for 5 days because he could not get to the pharmacy, states he took one of his friends blood pressure pills today and feels it may have helped with his headache. Patient also reports sore throat and chest tightness x 3 days. Denies fever, dizziness, extremity numbness/weakness, vision changes, vomiting, shortness of breath, palpitations, leg pain/swelling. Past Medical History Reviewed: Historical Data, Nursing Documentation, Vital Signs Vital Signs: Last Vital Signs Temp Pulse 88 11/26/18 19:12 Resp 16 11/26/18 19:12 BP 130/78 11/26/18 19:12 Pulse Ox 99 11/26/18 19:12 - Medical History PMH: Anxiety, Asthma, Back Problems, Depression, HIV, HTN, Hypercholesterolemia, Hyperthyroidism, Hypothyroidism, Malignancy (BURKITT'S LYMPHOMA) Denies: CAD, Diabetes, Hepatitis, Pulmonary Embolism, Chronic Kidney Disease, Seizures, Sexually Transmitted Disease - Surgical History Other surgeries: gastric sleeve - Family History Family History: States: Unknown Family Hx, Hypertension - Immunization History Hx Tetanus Toxoid Vaccination: No Hx Influenza Vaccination: Yes Hx Pneumococcal Vaccination: Yes - Home Medications Home Medications: Ambulatory Orders Medication Instructions Recorded Multivit,Iron,Min 5/Folic Acid 1 tab PO DAILY 04/04/15 [Strovite Forte Caplet] Montelukast [Singulair] 10 mg PO DAILY 04/07/15 amLODIPine [Norvasc] 10 mg PO DAILY 04/07/15 Prazosin HCl [Minipress] 1 mg PO HS #30 cap 04/15/15 hydrOXYzine Pamoate [Vistaril] 50 mg PO BID PRN #60 cap 04/15/15 Atorvastatin [Lipitor] 1 tab PO DAILY 10/01/15 Aspirin [Ecotrin] 81 mg PO DAILY 11/24/15 Gabapentin [Neurontin] 600 mg PO Q4 11/26/16 Methimazole 10 mg PO TID 11/26/16 Efavirenz [Sustiva] 600 mg PO DAILY tab 11/30/16 Emtricitabine/Tenofovir Diso 1 tab PO DAILY tab 11/30/16 [Truvada 200 MG-300 MG] Enoxaparin [Lovenox] 40 mg SC DAILY syr 11/30/16 Fluticasone/Salmeterol 500/50 1 puff IH Q12 puff 11/30/16 [Advair Diskus 500/50] Mupirocin 2% Ointment [Bactroban 1 applic TOP BID tube 11/30/16 Ointment] Saccharomyces Boulardi [Florastor] 250 mg PO BID cap 11/30/16 Zolpidem [Ambien] 10 mg PO HS PRN #0 tab 11/30/16 Naproxen [Naprosyn] 500 mg PO BID PRN #30 tab 02/04/17 metFORMIN [glucOPHAGE] 500 mg PO BID #14 tab 02/04/17 Ibuprofen [Motrin] 600 mg PO Q6 #20 tab 05/31/17 Promethazine HCl/Codeine 5 ml PO HS #80 ml 05/31/17 [Prometh-Codein 6.25-10 mg/5 ml] Benzonatate [Tessalon Perles] 200 mg PO TID PRN #21 sgl 06/10/17 Loratadine [Claritin] 10 mg PO DAILY #10 tab 06/10/17 predniSONE [Prednisone] 20 mg PO BID #10 tab 06/10/17 Naproxen [Naprosyn] 500 mg PO Q12H #20 tab 08/13/17 traMADol [Ultram] 50 mg PO Q8 #10 tab 08/13/17 Amoxicillin/Clavulanate [Augmentin 1 tab PO BID #14 tab 02/26/18 875 MG-125 MG] Cyclobenzaprine [Flexeril] 5 mg PO Q8 PRN #15 tab 02/26/18 Ibuprofen [Motrin Tab] 600 mg PO Q8 PRN #30 tab 02/26/18 Azithromycin [Zithromax] 250 mg PO DAILY #6 tab 04/11/18 Benzonatate [Tessalon Perle] 100 mg PO Q8 PRN #14 capsule 04/11/18 Albuterol 0.083% [Albuterol 0.083% 3 ml IH Q6H PRN #30 neb 09/29/18 Inhal Sandra (2.5 mg/3 ml) UD] Albuterol HFA [Ventolin HFA 90 2 puff IH [id number] PRN #1 bottle 09/29/18 mcg/actuation (8 g)] Methylprednisolone [Medrol Dose 4 mg PO DAILY #21 mg 09/29/18 Pack (21 tabs)] Ibuprofen [Motrin] 600 mg PO Q6H PRN #20 tab 10/14/18 Naproxen [Naprosyn] 500 mg PO Q12 PRN #14 tablet 11/27/18 - Allergies Allergies/Adverse Reactions: Allergies Allergy/AdvReac Type Severity Reaction Status Date / Time No Known Allergies Allergy Verified 11/26/18 19:12 Review of Systems ROS Statement: Except As Marked, All Systems Reviewed And Found Negative ENT: Positive for: Throat Pain Cardiovascular: Positive for: Chest Pain Neurological: Positive for: Headache Physical Exam - Reviewed Nursing Documentation Reviewed: Yes Vital Signs Reviewed: Yes - Physical Exam Appears: Positive for: Well, Non-toxic, No Acute Distress Head Exam: Positive for: ATRAUMATIC, NORMAL INSPECTION, NORMOCEPHALIC Skin: Positive for: Normal Color Eye Exam: Positive for: Normal appearance, EOMI, PERRL ENT: Positive for: Normal ENT Inspection Neck: Positive for: Normal, Painless ROM, Supple Cardiovascular/Chest: Positive for: Regular Rate, Rhythm Respiratory: Positive for: Normal Breath Sounds Gastrointestinal/Abdominal: Positive for: Normal Exam Back: Positive for: Normal Inspection Extremity: Positive for: Normal ROM Neurological/Psych: Positive for: Awake, Alert, Oriented (x3) - Laboratory Results Result Diagrams: 11/26/18 20:55 11/26/18 20:55 - ECG ECG: Positive for: Viewed By Me (reviewed by ED attending) ECG Rhythm: Positive for: Sinus Rhythm O2 Sat by Pulse Oximetry: 99 - Progress ED Course And Treament: -cbc -cmp -troponin -rapid strep -ekg -cxr -CT head -PO tylenol -PO flexeril EXAM: CT Head Without IV contrast. CLINICAL HISTORY: Headache TECHNIQUE: Axial computed tomography images of the head/brain without intravenous contrast. COMPARISON: None provided. FINDINGS: BRAIN: No acute intraparenchymal hemorrhage. No mass lesion. No CT evidence for acute territorial infarct. No midline shift or extra-axial collections. VENTRICLES: No hydrocephalus. ORBITS: The orbits are unremarkable. SINUSES AND MASTOIDS: The paranasal sinuses and mastoid air cells are clear. BONES: No fracture. SOFT TISSUES: Unremarkable. IMPRESSION: No acute intracranial abnormality. -On re-eval, patient states headache improving; Toradol ordered -Patient states headache resolved after Toradol Repeat trop negative Patient educated on findings, discharged with rx Naproxen Advised follow up PMD within 2-3 days. Take BP medications as directed Return precautions given Disposition - Clinical Impression Clinical Impression: Chest pain, Headache, Sore throat - Patient ED Disposition Is Patient to be Admitted: No Counseled Patient/Family Regarding: Studies Performed, Diagnosis, Need For Followup, Rx Given - Disposition Disposition: Routine/Home Disposition Time: 01:30 Condition: IMPROVED Prescriptions: Naproxen [Naprosyn] 500 mg PO Q12 PRN #14 tablet PRN Reason: Pain, Moderate (4-7) Instructions: Headache, Adult, Chest Pain, Sore Throat, Adult (DC)
[2018-11-26 21:05] LABS: BASO % 0.2 % (0.0-2.0); EOS # 0.1 K/uL (0.0-0.7); EOS % 0.7 % (0.0-4.0); HEMOGLOBIN 13.4 g/dL (12.0-18.0); LYMPH # 1.7 K/uL (1.0-4.3); LYMPH % 22.4 % (20.0-40.0); MEAN CELL VOLUME 88.6 fl (80.0-94.0); MEAN CORPUSCULAR HEMOGLOBIN 30.1 pg (27.0-31.0); MEAN PLATELET VOLUME 7.8 fl (7.2-11.7); MONO # 0.8 K/uL (0.0-0.8); MONO % 10.1 % (0.0-10.0); NEUT # 5.1 K/uL (1.8-7.0); NEUT % 66.6 % (50.0-75.0); RBC 4.46 Mil/uL (4.40-5.90); RED CELL DISTRIBUTION WIDTH 13.7 % (11.5-14.5); WHITE BLOOD COUNT 7.6 K/uL (4.8-10.8)
[2018-11-26 21:15] LABS: ALB/GLOB RATIO 1.2 (1.0-2.1); ALBUMIN 4.2 g/dL (3.5-5.0); ALT/SGPT 23 U/L (21-72); AST/SGOT 21 U/L (17-59); BLOOD UREA NITROGEN 18 mg/dl (9-20); CALCIUM 9.4 mg/dL (8.4-10.2); GFR NON-AFRICAN AMERICAN > 60
[2018-11-27 02:22] VITALS: BP 115/70; PULSE 85; RESP 17; TEMP 97.9
--- NOTE | 2018-11-27 08:52 | CT ---
Date of service: 11/26/2018 PROCEDURE: CT HEAD WITHOUT CONTRAST. HISTORY: Headache COMPARISON: 10/14/2018. TECHNIQUE: Axial computed tomography images were obtained through the head/brain without intravenous contrast. Radiation dose: Total exam DLP = 918.63 mGy-cm. This CT exam was performed using one or more of the following dose reduction techniques: Automated exposure control, adjustment of the mA and/or kV according to patient size, and/or use of iterative reconstruction technique. FINDINGS: HEMORRHAGE: No intracranial hemorrhage. BRAIN: Liang-white matter differentiation is preserved. There is no mass, mass effect or abnormal extra-axial fluid collection. There is no territorial infarction. The midline sagittal structures are normal. VENTRICLES: The ventricles are normal in size, shape and configuration. CALVARIUM: There is no calvarial fracture or extracranial soft tissue swelling. PARANASAL SINUSES: Predominantly clear. MASTOID AIR CELLS: Predominantly clear. OTHER FINDINGS: None. IMPRESSION: No acute intracranial abnormality. A preliminary report was provided by [employer].
--- NOTE | 2018-11-27 09:12 | RAD ---
Date of service: 11/26/2018 HISTORY: Chest pain COMPARISON: 09/29/2018. TECHNIQUE: Chest PA and lateral FINDINGS: LINES AND TUBES: None. LUNG AND PLEURA: The lungs are hyperinflated and there is peribronchial thickening with chronic changes in both lungs. There is no focal consolidation. No pleural effusion or pneumothorax. HEART AND MEDIASTINUM: The heart is not enlarged. No aortic atherosclerotic calcifications present. The hilar and mediastinal contours are within normal limits. SKELETAL STRUCTURES: The bony structures are within normal limits for the patient's age. VISUALIZED UPPER ABDOMEN: Normal. OTHER FINDINGS: None. IMPRESSION: No active pulmonary disease.
--- NOTE | 2018-11-27 09:20 | CARD ---
APPROVED REPORT Date of service: 11/26/2018 EKG Measurement Heart [id number] <Conclusion> Normal sinus rhythm Normal ECG
== END 2018-11-27 02:22 | disposition home or self-care (01) ==
LOC: H.ER 19:06
DX: R51 Headache (principal); R07.89 Other chest pain; J02.9 Acute pharyngitis, unspecified; E03.9 Hypothyroidism, unspecified; E05.90 Thyrotoxicosis, unspecified without thyrotoxic crisis or storm; E78.00 Pure hypercholesterolemia, unspecified; I10 Essential (primary) hypertension; Z79.84 Long term (current) use of oral hypoglycemic drugs
CPT/HCPCS: 70450; 71046; 80053; 84484; 85025; 87070; 87430; 93005; 96374; 99283; J1885